=== PATIENT | male | born 1970 | race Hispanic/Latino ===

== ENCOUNTER 2016-11-06 23:33 | Inpatient (IN) | payer MEDICARE ==
--- NOTE | 2016-11-06 23:42 | C.PDOC ---
Time Seen by Provider: 11/06/16 23:41 Chief Complaint (Nursing): Chest Pain Past Medical History Reviewed: Historical Data, Nursing Documentation, Vital Signs Vital Signs: Last Vital Signs Temp 99 F 11/06/16 23:48 Pulse 98 H 11/06/16 23:48 Resp 20 11/06/16 23:48 BP 120/77 11/06/16 23:48 Pulse Ox 98 11/07/16 00:07 - Medical History PMH: Asthma Family History: States: No Known Family Hx - Social History Hx Tobacco Use: No Hx Alcohol Use: No Hx Substance Use: No - Immunization History Hx Tetanus Toxoid Vaccination: No Hx Influenza Vaccination: No Hx Pneumococcal Vaccination: No ED Course And Treatment - Laboratory Results Result Diagrams: 11/07/16 00:26 ECG: Interpreted By Me, Viewed By Me ECG Rhythm: Sinus Rhythm (94), Nonspecific Changes O2 Sat by Pulse Oximetry: 98 Pulse Ox Interpretation: Normal - Radiology CXR: Interpreted by Me, Viewed By Me CXR Interpretation: No: Infiltrates, Fracture, Pnemothorax Progress Note: blood work, asa, syphylis work up Disposition Counseled Patient/Family Regarding: Studies Performed, Diagnosis - Disposition Disposition Time: 23:42
[2016-11-07 00:31] LABS: BASO # 0.1 K/uL (0.0-0.2); BASO % 0.7 % (0.0-2.0); EOS # 0.5 K/uL (0.0-0.7); EOS % 4.8 % (0.0-4.0); HEMATOCRIT 38.6 % (35.0-51.0); LYMPH # 2.6 K/uL (1.0-4.3); LYMPH % 23.4 % (20.0-40.0); MEAN CELL VOLUME 83.6 fL (80.0-94.0); MEAN CORPUSCULAR HEMOGLOBIN 27.9 pg (27.0-31.0); MEAN CORPUSCULAR HGB CONC 33.3 g/dL (33.0-37.0); MEAN PLATELET VOLUME 7.2 fL (7.2-11.7); MONO # 0.7 K/uL (0.0-0.8); MONO % 6.4 % (0.0-10.0); RED CELL DISTRIBUTION WIDTH 13.3 % (11.5-14.5); WHITE BLOOD COUNT 11.3 K/uL (4.8-10.8)
[2016-11-07 00:38] LABS: INR 1.2
[2016-11-07 00:44] LABS: CHLORIDE 98 mmol/L (98-107); POTASSIUM 3.9 mmol/L (3.6-5.2); SODIUM 134 mmol/L (132-148)
[2016-11-07 00:46] LABS: ALB/GLOB RATIO 1.3 (1.0-2.1); ALKALINE PHOSPHATASE 70 U/L (38-126); ALT/SGPT 23 U/L (21-72); AST/SGOT 25 U/L (17-59); BILIRUBIN,TOTAL 0.7 mg/dL (0.2-1.3); BLOOD UREA NITROGEN 19 mg/dL (9-20); CARBON DIOXIDE 25 mmol/L (22-30); GFR AFRICAN-AMERICAN > 60; TOTAL PROTEIN 7.1 g/dL (6.3-8.3)
[2016-11-07 00:47] LABS: CALCIUM 9.3 mg/dl (8.6-10.4); GLUCOSE,RANDOM 98 mg/dL (75-110)
[2016-11-07 00:58] LABS: RBC URINE 1 /hpf (0-3); URINE BILIRUBIN NEGATIVE (NEGATIVE); URINE BLOOD NEGATIVE (NEGATIVE); URINE COLOR Yellow (YELLOW); URINE GLUCOSE (UA) NORMAL (Normal); URINE KETONE NEGATIVE (NEGATIVE); URINE LEUKOCYTE ESTERASE NEG Leu/uL (Negative); URINE PROTEIN NEGATIVE (NEGATIVE); URINE UROBILINOGEN NORMAL mg/dL (0.2-1.0); WBC URINE 1 /hpf (0-5)
--- NOTE | 2016-11-07 03:55 | C.PDOC ---
History Of Present Illness patient initially stated that he had chest pain, but he really wants to complain about his scotal pain. Has had unprotected intercourse and has developed foul smelling celulitis of his scrotum as well as a diffuse body rash. Has had some exposure to syphilis in the past. Denies any chest pain. No f /c/n/v Time Seen by Provider: 11/06/16 23:41 Chief Complaint (Nursing): Chest Pain History Per: Patient, Family History/Exam Limitations: no limitations Onset/Duration Of Symptoms: Days Current Symptoms Are (Timing): Still Present Severity: Moderate Pain Scale Rating Of: 4 Recent travel outside of the [place]: No Additional History Per: Family Past Medical History Reviewed: Historical Data, Nursing Documentation, Vital Signs Vital Signs: Last Vital Signs Temp 99 F 11/06/16 23:48 Pulse 87 11/07/16 04:15 Resp 20 11/07/16 04:15 BP 131/70 11/07/16 04:15 Pulse Ox 98 11/07/16 04:15 - Medical History PMH: Anxiety, Asthma, Bipolar Disorder Family History: States: No Known Family Hx - Social History Hx Tobacco Use: No Hx Alcohol Use: No Hx Substance Use: No - Immunization History Hx Tetanus Toxoid Vaccination: No Hx Influenza Vaccination: No Hx Pneumococcal Vaccination: No Review Of Systems Constitutional: Negative for: Fever, Chills Eyes: Negative for: Vision Change Cardiovascular: Negative for: Chest Pain, Palpitations Respiratory: Negative for: Shortness of Breath Gastrointestinal: Negative for: Nausea, Vomiting, Abdominal Pain Genitourinary: Positive for: Scrotal Pain, Rash. Negative for: Dysuria, Incontinence Musculoskeletal: Negative for: Back Pain Skin: Positive for: Rash, Lesions. Negative for: Jaundice, Bruising Neurological: Negative for: Weakness Psych: Negative for: Anxiety Physical Exam - Physical Exam Appears: Non-toxic, No Acute Distress Skin: Warm, Rash (diffuse chest, back, possible palms) Head: Normacephalic Eye(s): bilateral: Normal Inspection Oral Mucosa: Moist Tongue: Normal Appearing Lips: Normal Appearing Neck: Supple Chest: Symmetrical Cardiovascular: Rhythm Regular Respiratory: No Rales, No Rhonchi, No Wheezing Gastrointestinal/Abdominal: Soft, No Tenderness, No Distention Male Genital: Testicular Tenderness, No Testicular Swelling, No Inguinal Tenderness, No Inguinal Swelling, Scrotal Swelling, Circumcised, Other (diffuse erythema, foul smelling discharge) Extremity: Normal ROM Extremity: Bilateral: Atraumatic Neurological/Psych: Oriented x3, Normal Speech, Normal Cognition Gait: Steady ED Course And Treatment - Laboratory Results Result Diagrams: 11/07/16 00:26 11/07/16 00:26 ECG: Interpreted By Me, Viewed By Me ECG Rhythm: Sinus Rhythm (94), Nonspecific Changes O2 Sat by Pulse Oximetry: 97 Pulse Ox Interpretation: Normal - Radiology CXR: Interpreted by Me, Viewed By Me CXR Interpretation: No: Infiltrates, Fracture, Pnemothorax Disposition Discussed With Dr.: Jose Bashir Comment: accepted the pt on his service and took over the care at 5:00AM Doctor Will See Patient In The: ED Counseled Patient/Family Regarding: Studies Performed, Diagnosis - Disposition Disposition: HOSPITALIZED Disposition Time: 02:00 Condition: FAIR - Clinical Impression Clinical Impression: Cellulitis, 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 This is because of the severity of symptoms shown, intensity of services needed, and/or the medical risk in this patient being treated as an outpatient. - InPatient: Physician Admission Certification: I certify that this patient requires 2 or more midnights of care for the following reason:: After my assessment, the patient will require hospitalization for at least two midnights. This is because of the severity of symptoms shown, intensity of services needed, and/or the medical risk in this patient being treated as an outpatient. - . 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
--- NOTE | 2016-11-07 04:33 | CP.PCM.HP ---
History of Present Illness - History of Present Illness History of Present Illness: CC: pain in my groin HPI: 46M PMHx of syphillis, Herpes2, recurrent SBO (2001, 2006, 2013, 2017), HTN , Schizoaffective disorder, anxiety, and Bipolar 1 presenting with pain and swelling in his groin for 1 week. Patent reports the pain is sharp and stabbing in nature, 10/10 in intensity, and constant. Patient reports the pain is exacerbated when there is active discharge from his testicles. His boyfriend sprayed benzocaine once which helped the pain and he also tried applying neosporin that made the area sting and a steroid cream which did not seem to help. Patient reported he is unable to walk or work secondary to the pain. He felt like his testicles had "shriveled up" and were smaller but there were two excoriated regions on his thighs that were like open wounds. Patient reports a lot of pain on the insides of his thighs and feeling like they were very swollen. The friction of walking coupled to the heat exacerbated the pain immensely. He also reported a foul odor. Patient's last flare of syphillis was in 2009 but he reported that this time it was worse. He also has been having intermittent pleuritic chest pain on the left upper side of his chest; worsened when bending over or sitting up and taking a deep breath. Patient initially complained of the chest pain when he came to the ER as he was embarrassed about the scrotal inflammation. Patient reported the pain in his chest was very sensitive to when he would move his arm up or down. He saw his PMD regarding the chest pain who recommended patient come to [facility] for a CXR. Patient also has a flat nonpruritic diffuse rash over his torso, arms, and back for the past 2 months but not on his palms or soles. He believes this rash is related to his syphillis. Patient stated his partner was diagonsed with syphillis in 1999 and was treated but the patient was not treated; in 2009 both him and his partner had a flare up of secondary syphillis and were treated for 6 weeks with Penicillin and patient had a 30pound weight loss. Patient admits to weakness, dizziness, lightheadedness, sore throat, palpitations, SOB, abdominal pain, nausea, 5 episodes of diarrhea, dysuria, sore feeling when he urinates, rash. Patient denies fever, chills, diaphoresis, headache, change in vision/hearing, dysphagia, chest pain, cough, vomiting, constipation, hematochezia, urinary frequency, leg pain/swelling, back pain, bruising, bleeding, recent travel, recent sickness. PMHx: syphillis, herpes2, recurrent SBO, HTN, schizoaffective disorder, anxiety , bipolar 1 PSHx: SBO 2001 ALL: NKDA Medications: Cozaar, Omeprazole, Risperdal, Clonazepam, Hydroxyzine, Lamictal Social Hx: quit tobacco at 19yo and does not drink. 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 Last use was day of admission. Lives with boyfriend and works at a [employer] Family Hx: cousin with lung ca PMD: Vick ROS: Denies fever, chills, diaphoresis, headache, change in vision/hearing, dysphagia, chest pain, cough, vomiting, constipation, hematochezia, urinary frequency, leg pain/swelling, back pain, bruising, bleeding, recent travel, recent sickness. Admits weakness, dizziness, lightheadedness, sore throat, palpitations, SOB, abdominal pain, nausea, 5 episodes of diarrhea, dysuria, sore feeling when he urinates, rash. Present on Admission - Present on Admission Any Indicators Present on Admission: No Review of Systems - Constitutional Constitutional: As Per HPI. absent: Chills, Fever - EENT Eyes: As Per HPI. absent: Blurred Vision Ears: As Per HPI, Dizziness Nose/Mouth/Throat: As Per HPI, Sore Throat. absent: Dysphagia - Cardiovascular Cardiovascular: As Per HPI, Palpitations. absent: Chest Pain, Dyspnea, Edema - Respiratory Respiratory: As Per HPI. absent: Cough, Wheezing - Gastrointestinal Gastrointestinal: As Per HPI, Abdominal Pain, Diarrhea, Nausea. absent: Constipation, Vomiting - Genitourinary Genitourinary: As Per HPI. absent: Dysuria, Hematuria - Reproductive: Male Reproductive:Male: As Per HPI, Genital Odor, Other (redness and inflammation of scrotum and penis) - Musculoskeletal Musculoskeletal: As Per HPI. absent: Numbness, Tingling - Integumentary Integumentary: As Per HPI, Erythema (groin), Rash (groin). absent: Pruritus - Neurological Neurological: As Per HPI, Dizziness. absent: Headaches, Tingling - Psychiatric Psychiatric: As Per HPI, Anxiety. absent: Depression - Endocrine Endocrine: As Per HPI, Palpitations. absent: Polydipsia, Polyphagia, Polyuria - Hematologic/Lymphatic Hematologic: As Per HPI. absent: Easy Bleeding, Easy Bruising, Lymphadenopathy Past Patient History - Past Social History Smoking Status: Never Smoked - PULMONARY Hx Asthma: Yes - PSYCHIATRIC Hx Anxiety: Yes Hx Bipolar Disorder: Yes Hx Substance Use: No - SURGICAL HISTORY Other/Comment: SMALL BOWEL OBSTRUCTION SURGERY - ANESTHESIA Hx Anesthesia: Yes Hx Anesthesia Reactions: No Meds Allergies/Adverse Reactions: Allergies Allergy/AdvReac Type Severity Reaction Status Date / Time No Known Allergies Allergy Verified 11/06/16 23:52 Physical Exam - Constitutional Additional comments: discomfort - Head Exam Head Exam: ATRAUMATIC, NORMAL INSPECTION, NORMOCEPHALIC - Eye Exam Eye Exam: EOMI, Normal appearance, PERRL. absent: Conjunctival injection, Scleral icterus Pupil Exam: NORMAL ACCOMODATION - ENT Exam ENT Exam: Mucous Membranes Moist - Neck Exam Neck exam: Positive for: Full Rom, Normal Inspection. Negative for: Lymphadenopathy, Tenderness - Respiratory Exam Respiratory Exam: Clear to Auscultation Bilateral, NORMAL BREATHING PATTERN. absent: Accessory Muscle Use, Rales, Rhonchi, Wheezes Additional comments: macular rash noted diffusely on chest wall - Cardiovascular Exam Cardiovascular Exam: REGULAR RHYTHM, RRR, +S1, +S2. absent: Systolic Murmur - GI/Abdominal Exam GI & Abdominal Exam: Normal Bowel Sounds, Soft. absent: Firm, Guarding, Rigid, Tenderness - Exam External exam: Erythema, Swelling. absent: NORMAL EXTERNAL EXAM - Expanded Exam Expanded Male exam: Positive for: erythema exam: testicular swelling: Bilateral, testicular tenderness: Bilateral - Extremities Exam Extremities exam: Positive for: normal capillary refill, normal inspection, pedal pulses present. Negative for: pedal edema, tenderness - Back Exam Back exam: rash noted. absent: CVA tenderness (L), CVA tenderness (R), tenderness Additional comments: rash noted diffusely - Neurological Exam Neurological exam: Alert, CN II-XII Intact, Oriented x3 - Psychiatric Exam Psychiatric exam: Normal Affect, Normal Mood - Skin Skin Exam: Dry, Intact, Normal Color, Warm Results - Vital Signs Recent Vital Signs: Last Vital Signs Temp 99 F 11/06/16 23:48 Pulse 98 H 11/06/16 23:48 Resp 20 11/06/16 23:48 BP 120/77 11/06/16 23:48 Pulse Ox 97 11/07/16 03:57 - Labs Result Diagrams: 11/07/16 00:26 11/07/16 00:26 Labs: Laboratory Results - last 24 hr 11/07/16 11/07/16 11/07/16 00:26 00:26 00:26 WBC 11.3 H RBC 4.62 Hgb 12.9 Hct 38.6 MCV 83.6 MCH 27.9 MCHC 33.3 RDW 13.3 Plt Count 330 MPV 7.2 Neut % (Auto) 64.7 Lymph % (Auto) 23.4 [place] % (Auto) 6.4 Eos % (Auto) 4.8 H Baso % (Auto) 0.7 Neut # 7.3 H Lymph # 2.6 [place] # 0.7 Eos # 0.5 Baso # 0.1 PT 13.1 H INR 1.2 APTT 30 Sodium 134 Potassium 3.9 Chloride 98 Carbon Dioxide 25 Anion Gap 15 BUN 19 Creatinine 1.0 Est GFR ( Amer) > 60 Est GFR (Non-Af Amer) > 60 Random Glucose 98 Calcium 9.3 Magnesium 2.0 Total Bilirubin 0.7 AST 25 ALT 23 Alkaline Phosphatase 70 Troponin I < 0.0120 Total Protein 7.1 Albumin 4.0 Globulin 3.1 Albumin/Globulin Ratio 1.3 Lipase 32 Urine Color Urine Clarity Urine pH Ur Specific [place] Urine Protein Urine Glucose (UA) Urine Ketones Urine Blood Urine Nitrate Urine Bilirubin Urine Urobilinogen Ur Leukocyte Esterase Urine WBC (Auto) Urine RBC (Auto) HIV 1&2 Antibody Screen 11/07/16 11/07/16 00:26 00:42 WBC RBC Hgb Hct MCV MCH MCHC RDW Plt Count MPV Neut % (Auto) Lymph % (Auto) [place] % (Auto) Eos % (Auto) Baso % (Auto) Neut # Lymph # [place] # Eos # Baso # PT INR APTT Sodium Potassium Chloride Carbon Dioxide Anion Gap BUN Creatinine Est GFR ( Amer) Est GFR (Non-Af Amer) Random Glucose Calcium Magnesium Total Bilirubin AST ALT Alkaline Phosphatase Troponin I Total Protein Albumin Globulin Albumin/Globulin Ratio Lipase Urine Color Yellow Urine Clarity Clear Urine pH 5.0 Ur Specific [place] 1.027 Urine Protein Negative Urine Glucose (UA) Normal Urine Ketones Negative Urine Blood Negative Urine Nitrate Negative Urine Bilirubin Negative Urine Urobilinogen Normal Ur Leukocyte Esterase Neg Urine WBC (Auto) 1 Urine RBC (Auto) 1 HIV 1&2 Antibody Screen Negative Assessment & Plan - Assessment and Plan (Free Text) Assessment: 46M PMHx of syphillis, Herpes2, recurrent SBO (2001, 2006, 2013, 2016), HTN, Schizoaffective disorder, anxiety, and Bipolar 1 presenting with pain and swelling in his groin for 1 week Plan: Groin rash -likely fungal -Diflucan 150mg po daily -HIV negative -f/u RPR, GC -f/u blood culture and urine culture Bipolar and Schizoaffective disorder -restarted home meds Risperdal 2mg po bid Klonipin 1mg po bid Lamictal 200mg po daily -f/u TSH and free T4 Hx of HTN? -Patient' takes boyfriend's medications -Monitor PPX -Heparin 5000U sc q12 -Protonix 40mg po daily -SCDs -Heart Healthy diet Case discussed with Dr. Krysten Salvador PGY1
--- NOTE | 2016-11-07 07:48 | CP.PCM.PN ---
<Emperatriz Ferrell - Last Filed: 11/07/16 13:40> Subjective - Date & Time of Evaluation Date of Evaluation: 11/07/16 Time of Evaluation: 07:48 - Subjective Subjective: Patient seen and examined at bedside. Patient appears anxious as he is concerned he has developed tertiary syphilis. He notes history of syphilis in the past but denies associated rash previously. Patient states pain to his testicles has improved as he is not moving around in hospital much, eliminating element of friction. He is concerned about the rash present to his chest and back and believes it is association with syphilis. Patient denies fever, chills , headache, dizziness, chest pain, abdominal pain, diarrhea, constipation , dysuria and increased urinary frequency. Objective - Vital Signs/Intake and Output Vital Signs (last 24 hours): Temp Pulse Resp BP Pulse Ox 97.8 F 73 20 111/75 98 11/07/16 06:31 11/07/16 06:31 11/07/16 06:31 11/07/16 06:31 11/07/16 06:31 - Medications Medications: Current Medications Clonazepam (Klonopin) 1 mg PO BID [facility] Fluconazole (Diflucan) 150 mg PO DAILY [facility] Heparin Sodium (Porcine) (Heparin) 5,000 units SC Q12 [facility] Home Med (Lamictal) 200 mg PO DAILY [facility] Pantoprazole Sodium (Protonix Ec Tab) 40 mg PO DAILY [facility] Risperidone (Risperdal Tab) 2 mg PO BID [facility] - Labs Labs: PT 13.1 SECONDS (9.7-12.2) H 11/07/16 00:26 INR 1.2 11/07/16 00:26 APTT 30 SECONDS (21-34) 11/07/16 00:26 - Constitutional Appears: Non-toxic, No Acute Distress - Head Exam Head Exam: ATRAUMATIC, NORMAL INSPECTION, NORMOCEPHALIC - Eye Exam Eye Exam: EOMI, Normal appearance, PERRL - ENT Exam ENT Exam: Mucous Membranes Moist - Neck Exam Neck Exam: Full ROM, Normal Inspection - Respiratory Exam Respiratory Exam: Clear to Ausculation Bilateral, NORMAL BREATHING PATTERN. absent: Rales, Rhonchi, Wheezes - Cardiovascular Exam Cardiovascular Exam: +S1, +S2. absent: Tachycardia, Murmur - GI/Abdominal Exam GI & Abdominal Exam: Soft, Normal Bowel Sounds. absent: Firm, Guarding, Tenderness - Extremities Exam Extremities Exam: Normal Inspection. absent: Pedal Edema, Tenderness - Back Exam Back Exam: rash noted - Neurological Exam Neurological Exam: Alert, Awake, Oriented x3 - Psychiatric Exam Psychiatric exam: Anxious - Skin Additional comments: hyperpigmented round macules to upper back and chest edema and erythema noted to scrotum with slight erosions and linear fissuring to medial thighs where the skin opposes testicle Assessment and Plan - Assessment and Plan (Free Text) Assessment: Groin rash likely intertrigo -Avoid combination fungal/steroid creams as the steroid strength is too strong for the groin and will thin the skin. -Diflucan 150mg po administered at 10 AM. -Monitor LFTs -Start Ketoconazole 2% cream to groin/medial thighs in AM for 2 weeks and Fluocinolone Acetonide 0.01% cream to groin/medial thighs at night for two weeks. -Start Desitin barrier cream. Instructed patient to apply thick layer to affected area as needed. -Educated patient on trying to eliminate friction, moisture and heat to area and allow area to be exposed to air when possible. Patient also instructed to avoid wearing tight fitted clothing. Due to history of syphilis, f/u RPR, FTA-ABS, and GC. -HIV negative Macular Rash to Chest/Back likely tinea versicolor -Diflucan 150 mg po administered at 10 AM. Diflucan 150 mg po given once. Will give one more dose of Diflucan 300 mg po once on 11/14. -Monitor LFTs -Start Ketoconazole 2% cream to back/chest twice daily for 4 weeks -Syphilis work-up pending Bipolar and Schizoaffective disorder -restarted home meds Risperdal 2mg po bid Klonipin 1mg po bid Lamictal 100mg po daily -f/u Psychiatry recommendations Hx of HTN? -Patient' takes boyfriend's medications -Blood pressure has been low normotensive throughout hospital admission thus far -Will continue to monitor PPX -Heparin 5000U sc q12 -Protonix 40mg po daily -SCDs -Heart Healthy diet <Constantin Melgoza H - Last Filed: 11/07/16 15:40> Objective - Vital Signs/Intake and Output Vital Signs (last 24 hours): Temp Pulse Resp BP Pulse Ox 98 F 65 16 108/73 97 11/07/16 10:52 11/07/16 10:52 11/07/16 10:52 11/07/16 10:52 11/07/16 10:52 - Medications Medications: Current Medications Clonazepam (Klonopin) 1 mg PO BID [facility] Last Admin: 11/07/16 10:51 Dose: 1 mg Fluconazole (Diflucan) 150 mg PO DAILY [facility] Last Admin: 11/07/16 10:46 Dose: 150 mg Fluconazole (Diflucan) 300 mg PO ONCE ONE Stop: 11/14/16 10:01 Fluocinolone Acetonide (Synalar 0.01% Cream) 0 gm TOP HS [facility] Heparin Sodium (Porcine) (Heparin) 5,000 units SC Q12 [facility] Last Admin: 11/07/16 12:24 Dose: 5,000 units Ketoconazole (Nizoral) 0 gm TOP BID [facility] Lamotrigine (Lamictal) 100 mg PO DAILY [facility] Pantoprazole Sodium (Protonix Ec Tab) 40 mg PO DAILY [facility] Last Admin: 11/07/16 10:47 Dose: 40 mg Petrolatum (Desitin Original) 0 gm TOP QID [facility] Risperidone (Risperdal Tab) 2 mg PO BID [facility] Last Admin: 11/07/16 12:28 Dose: 2 mg - Labs Labs: PT 13.1 SECONDS (9.7-12.2) H 11/07/16 00:26 INR 1.2 11/07/16 00:26 APTT 32 SECONDS (21-34) 11/07/16 11:01 Attending/Attestation - Attestation I have personally seen and examined this patient.: Yes I have fully participated in the care of the patient.: Yes I have reviewed all pertinent clinical information, including history, physical exam and plan: Yes Notes (Text): Medical attending: Patient was seen and examined by me, agrees the above note by medical social consultant. The patient was not in any acute distress or acute concerns when we saw him. At this time were waiting on some the testing for syphilis to come back. He explains to us that he had a history of syphilis and received 6 shots of IM penicillin. He explains that this is been many years ago. It may be that he has a fungal component to the rashes in his in in her bilateral thighs as well as over his scrotum. He's been prescribed a topical ketoconazole cream to see if this brings him any relief. Thank you very much, Constantin Melgoza
--- NOTE | 2016-11-07 08:19 | RAD ---
PROCEDURE: CHEST RADIOGRAPH, 1 VIEW HISTORY: SOB COMPARISON: None available. FINDINGS: LUNGS: Clear. PLEURA: No pneumothorax or pleural fluid seen. CARDIOVASCULAR: Normal. OSSEOUS STRUCTURES: No significant abnormalities. VISUALIZED UPPER ABDOMEN: Normal. OTHER FINDINGS: None. IMPRESSION: No active disease.
[2016-11-07] MEDS: Pantoprazole 40 mg EC Tab PO SCH (10:47)
[2016-11-07] MEDS: Zinc Oxide Topical 30 gm Tube TOP SCH ×2 (18:11→21:12)
[2016-11-07] MEDS: Fluocinolone Acetonide 0.01% (15 gm) Cream TOP SCH (21:12)
[2016-11-08 06:50] LABS: CHLORIDE 104 mmol/L (98-107); SODIUM 138 mmol/L (132-148)
[2016-11-08 06:51] LABS: POTASSIUM 4.3 mmol/L (3.6-5.2)
[2016-11-08 06:53] LABS: ALB/GLOB RATIO 1.1 (1.0-2.1); ALKALINE PHOSPHATASE 65 U/L (38-126); ALT/SGPT 19 U/L (21-72); AST/SGOT 17 U/L (17-59); BILIRUBIN,TOTAL 0.6 mg/dL (0.2-1.3); BLOOD UREA NITROGEN 23 mg/dL (9-20); CALCIUM 9.5 mg/dl (8.6-10.4); CARBON DIOXIDE 26 mmol/L (22-30); GFR AFRICAN-AMERICAN > 60; GLUCOSE,RANDOM 90 mg/dL (75-110)
[2016-11-08 06:54] LABS: MAGNESIUM 2.3 mg/dL (1.6-2.3)
--- NOTE | 2016-11-08 07:13 | CP.PCM.PN ---
<Emperatriz Ferrell - Last Filed: 11/08/16 11:24> Subjective - Date & Time of Evaluation Date of Evaluation: 11/08/16 Time of Evaluation: 07:12 - Subjective Subjective: Patient seen and examined at bedside. He continues to report pain to his testicles. He has started using the prescribed topical medications yesterday and given detailed instructions at bedside regarding how to use the topicals. Patient informed RPR is non-reactive. We are awaiting FTA-ABS. Patient denies fever and chills. He also denies dysuria or increased urinary frequency. All other ROS negative. Objective - Vital Signs/Intake and Output Vital Signs (last 24 hours): Temp Pulse Resp BP Pulse Ox 97.9 F 75 20 107/73 98 11/07/16 23:05 11/07/16 23:05 11/07/16 23:05 11/07/16 23:05 11/07/16 23:05 - Medications Medications: Current Medications Clonazepam (Klonopin) 1 mg PO BID [facility] Last Admin: 11/07/16 21:08 Dose: 1 mg Fluconazole (Diflucan) 150 mg PO DAILY [facility] Last Admin: 11/07/16 10:46 Dose: 150 mg Fluconazole (Diflucan) 300 mg PO ONCE ONE Stop: 11/14/16 10:01 Fluocinolone Acetonide (Synalar 0.01% Cream) 0 gm TOP HS [facility] Last Admin: 11/07/16 21:12 Dose: 1 applic Heparin Sodium (Porcine) (Heparin) 5,000 units SC Q12 [facility] Last Admin: 11/07/16 22:23 Dose: 5,000 units Ketoconazole (Nizoral) 0 gm TOP BID [facility] Last Admin: 11/07/16 21:10 Dose: 1 applic Lamotrigine (Lamictal) 100 mg PO DAILY [facility] Pantoprazole Sodium (Protonix Ec Tab) 40 mg PO DAILY [facility] Last Admin: 11/07/16 10:47 Dose: 40 mg Petrolatum (Desitin Original) 0 gm TOP QID [facility] Last Admin: 11/07/16 21:12 Dose: 1 applic Risperidone (Risperdal Tab) 2 mg PO BID [facility] Last Admin: 11/07/16 21:08 Dose: 2 mg - Labs Labs: 11/08/16 06:28 PT 13.1 SECONDS (9.7-12.2) H 11/07/16 00:26 INR 1.2 11/07/16 00:26 APTT 32 SECONDS (21-34) 11/07/16 11:01 - Constitutional Appears: Non-toxic, No Acute Distress - Head Exam Head Exam: ATRAUMATIC, NORMAL INSPECTION, NORMOCEPHALIC - Eye Exam Eye Exam: EOMI, Normal appearance - ENT Exam ENT Exam: Mucous Membranes Moist - Respiratory Exam Respiratory Exam: Clear to Ausculation Bilateral, NORMAL BREATHING PATTERN. absent: Rales, Rhonchi, Wheezes - Cardiovascular Exam Cardiovascular Exam: +S1, +S2 - GI/Abdominal Exam GI & Abdominal Exam: Soft, Normal Bowel Sounds. absent: Firm, Guarding - Extremities Exam Extremities Exam: Normal Inspection. absent: Pedal Edema, Tenderness - Back Exam Back Exam: rash noted - Neurological Exam Neurological Exam: Alert, Awake, Oriented x3 - Psychiatric Exam Psychiatric exam: Normal Affect, Normal Mood - Skin Additional comments: hyperpigmented round macules to upper back and chest edema and erythema noted to scrotum with slight erosions and linear fissuring to medial thighs where the skin opposes testicle Assessment and Plan - Assessment and Plan (Free Text) Assessment: Groin rash likely intertrigo -Avoid combination fungal/steroid creams as the steroid strength is too strong for the groin and will thin the skin. -Diflucan 150mg po administered at 10 AM. -Monitor LFTs -Start Ketoconazole 2% cream to groin/medial thighs in AM for 2 weeks and Fluocinolone Acetonide 0.01% cream to groin/medial thighs at night for two weeks. -Start Desitin barrier cream. Instructed patient to apply thick layer to affected area as needed. -Educated patient on trying to eliminate friction, moisture and heat to area and allow area to be exposed to air when possible. Patient also instructed to avoid wearing tight fitted clothing. Due to history of syphilis: RPR, FTA-ABS, and GC ordered. RPR negative. Awaiting FTA-ABS. -HIV negative Macular Rash to Chest/Back likely tinea versicolor -Diflucan 150 mg po administered at 10 AM. Diflucan 150 mg po given once. Will give one more dose of Diflucan 300 mg po once on 11/14. -Monitor LFTs -Start Ketoconazole 2% cream to back/chest twice daily for 4 weeks -Syphilis work-up pending Bipolar and Schizoaffective disorder -restarted home meds Risperdal 2mg po bid Klonipin 1mg po bid Lamictal 100mg po daily -f/u Psychiatry recommendations Hx of HTN? -Patient' takes boyfriend's medications -Blood pressure has been low normotensive throughout hospital admission thus far -Will continue to monitor PPX -Heparin 5000U sc q12 -Protonix 40mg po daily -SCDs -Heart Healthy diet <Constantin Melgoza H - Last Filed: 11/08/16 16:09> Objective - Vital Signs/Intake and Output Vital Signs (last 24 hours): Temp Pulse Resp BP Pulse Ox 98.0 F 77 18 112/75 100 11/08/16 07:25 11/08/16 07:25 11/08/16 07:25 11/08/16 07:25 11/08/16 07:25 - Medications Medications: Current Medications Clonazepam (Klonopin) 1 mg PO BID [facility] Last Admin: 11/08/16 10:12 Dose: 1 mg Fluconazole (Diflucan) 150 mg PO DAILY [facility] Last Admin: 11/08/16 10:15 Dose: 150 mg Fluconazole (Diflucan) 300 mg PO ONCE ONE Stop: 11/14/16 10:01 Fluocinolone Acetonide (Synalar 0.01% Cream) 0 gm TOP HS [facility] Last Admin: 11/07/16 21:12 Dose: 1 applic Heparin Sodium (Porcine) (Heparin) 5,000 units SC Q12 [facility] Last Admin: 11/08/16 10:06 Dose: 5,000 units Ketoconazole (Nizoral) 0 gm TOP BID [facility] Last Admin: 11/08/16 10:08 Dose: 1 applic Lamotrigine (Lamictal) 100 mg PO DAILY [facility] Pantoprazole Sodium (Protonix Ec Tab) 40 mg PO DAILY [facility] Last Admin: 11/08/16 10:11 Dose: 40 mg Petrolatum (Desitin Original) 0 gm TOP QID [facility] Last Admin: 11/08/16 13:53 Dose: 1 applic Pneumococcal Polyvalent Vaccine (Pneumovax 23 Vaccine) 0.5 ml IM .ONCE ONE Stop: 11/09/16 10:01 Risperidone (Risperdal Tab) 2 mg PO BID [facility] Last Admin: 11/08/16 11:47 Dose: 2 mg - Labs Labs: 11/08/16 06:28 11/08/16 06:28 PT 13.1 SECONDS (9.7-12.2) H 11/07/16 00:26 INR 1.2 11/07/16 00:26 APTT 32 SECONDS (21-34) 11/07/16 11:01 Attending/Attestation - Attestation I have personally seen and examined this patient.: Yes I have fully participated in the care of the patient.: Yes I have reviewed all pertinent clinical information, including history, physical exam and plan: Yes Notes (Text): 11/08/16 16:08 Medical attending: Patient was seen and examined by me, agrees the above note by registered medical transcriptionist. The patient reports that he's feeling okay the initial RPR study returned that was negative for waiting on additional syphilis studies to return at this time. He had a dose of oral Diflucan as well as some topical ketoconazole that is being given to the affected areas especially around his groin and his inner thigh Thank you very much, Constantin Melgoza
[2016-11-08 07:22] LABS: BASO # 0.1 K/uL (0.0-0.2); BASO % 0.9 % (0.0-2.0); EOS # 0.5 K/uL (0.0-0.7); EOS % 6.7 % (0.0-4.0); HEMATOCRIT 39.7 % (35.0-51.0); LYMPH # 2.4 K/uL (1.0-4.3); LYMPH % 33.7 % (20.0-40.0); MEAN CELL VOLUME 83.8 fL (80.0-94.0); MEAN CORPUSCULAR HEMOGLOBIN 28.5 pg (27.0-31.0); MEAN PLATELET VOLUME 7.4 fL (7.2-11.7); MONO # 0.5 K/uL (0.0-0.8); MONO % 7.4 % (0.0-10.0); RED CELL DISTRIBUTION WIDTH 13.2 % (11.5-14.5); WHITE BLOOD COUNT 7.3 K/uL (4.8-10.8)
[2016-11-08] MEDS: Zinc Oxide Topical 30 gm Tube TOP SCH ×4 (10:07→21:36)
[2016-11-08] MEDS: Pantoprazole 40 mg EC Tab PO SCH (10:11)
[2016-11-08] MEDS: Fluocinolone Acetonide 0.01% (15 gm) Cream TOP SCH (21:37)
[2016-11-09 07:59] LABS: BASO # 0.1 K/uL (0.0-0.2); BASO % 1.1 % (0.0-2.0); EOS # 0.5 K/uL (0.0-0.7); EOS % 6.3 % (0.0-4.0); HEMATOCRIT 39.8 % (35.0-51.0); LYMPH # 2.6 K/uL (1.0-4.3); LYMPH % 34.7 % (20.0-40.0); MEAN CORPUSCULAR HEMOGLOBIN 28.7 pg (27.0-31.0); MEAN CORPUSCULAR HGB CONC 34.6 g/dL (33.0-37.0); MEAN PLATELET VOLUME 7.5 fL (7.2-11.7); MONO # 0.6 K/uL (0.0-0.8); MONO % 7.8 % (0.0-10.0); RED CELL DISTRIBUTION WIDTH 12.9 % (11.5-14.5); WHITE BLOOD COUNT 7.4 K/uL (4.8-10.8)
[2016-11-09 08:11] LABS: CHLORIDE 100 mmol/L (98-107)
[2016-11-09 08:12] LABS: POTASSIUM 4.3 mmol/L (3.6-5.2); SODIUM 136 mmol/L (132-148)
[2016-11-09 08:14] VITALS: RESP 18
[2016-11-09 08:14] LABS: AST/SGOT 21 U/L (17-59); BILIRUBIN,TOTAL 0.6 mg/dL (0.2-1.3); CARBON DIOXIDE 26 mmol/L (22-30); GFR AFRICAN-AMERICAN > 60
[2016-11-09 08:15] LABS: ALB/GLOB RATIO 1.2 (1.0-2.1); ALKALINE PHOSPHATASE 64 U/L (38-126); ALT/SGPT 17 U/L (21-72); BLOOD UREA NITROGEN 24 mg/dL (9-20); CALCIUM 9.4 mg/dl (8.6-10.4); GLUCOSE,RANDOM 91 mg/dL (75-110); TOTAL PROTEIN 6.9 g/dL (6.3-8.3)
[2016-11-09] MEDS: Pantoprazole 40 mg EC Tab PO SCH (09:59)
[2016-11-09] MEDS ORDERED: Pneumococcal 23-Valent Vaccine IM ONE (10:00)
[2016-11-09] MEDS: Zinc Oxide Topical 30 gm Tube TOP SCH ×2 (10:02→13:24)
--- NOTE | 2016-11-09 11:56 | CP.PCM.DIS ---
<PaulaArabella vasquez H - Last Filed: 11/09/16 11:52> Provider - Provider Date of Admission: 11/07/16 05:37 Attending physician: Jose Bashir MD Primary care physician: A doctor with [facility] Time Spent in preparation of Discharge (in minutes): 40 Hospital Course - Lab Results Lab Results: Most Recent Lab Values WBC 7.4 K/uL (4.8-10.8) 11/09/16 07:34 RBC 4.79 Mil/uL (4.40-5.90) 11/09/16 07:34 Hgb 13.8 g/dL (12.0-18.0) 11/09/16 07:34 Hct 39.8 % (35.0-51.0) 11/09/16 07:34 MCV 83.0 fL (80.0-94.0) 11/09/16 07:34 MCH 28.7 pg (27.0-31.0) 11/09/16 07:34 MCHC 34.6 g/dL (33.0-37.0) 11/09/16 07:34 RDW 12.9 % (11.5-14.5) 11/09/16 07:34 Plt Count 327 K/uL (130-400) 11/09/16 07:34 MPV 7.5 fL (7.2-11.7) 11/09/16 07:34 Neut % (Auto) 50.1 % (50.0-75.0) 11/09/16 07:34 Lymph % (Auto) 34.7 % (20.0-40.0) 11/09/16 07:34 Kings % (Auto) 7.8 % (0.0-10.0) 11/09/16 07:34 Eos % (Auto) 6.3 % (0.0-4.0) H 11/09/16 07:34 Baso % (Auto) 1.1 % (0.0-2.0) 11/09/16 07:34 Neut # 3.7 K/uL (1.8-7.0) 11/09/16 07:34 Lymph # 2.6 K/uL (1.0-4.3) 11/09/16 07:34 Kings # 0.6 K/uL (0.0-0.8) 11/09/16 07:34 Eos # 0.5 K/uL (0.0-0.7) 11/09/16 07:34 Baso # 0.1 K/uL (0.0-0.2) 11/09/16 07:34 PT 13.1 SECONDS (9.7-12.2) H 11/07/16 00:26 INR 1.2 11/07/16 00:26 APTT 32 SECONDS (21-34) 11/07/16 11:01 Sodium 136 mmol/L (132-148) 11/09/16 07:34 Potassium 4.3 mmol/L (3.6-5.2) 11/09/16 07:34 Chloride 100 mmol/L (98-107) 11/09/16 07:34 Carbon Dioxide 26 mmol/L (22-30) 11/09/16 07:34 Anion Gap 15 (10-20) 11/09/16 07:34 BUN 24 mg/dL (9-20) H 11/09/16 07:34 Creatinine 0.8 MG/DL (0.8-1.5) 11/09/16 07:34 Est GFR ( Amer) > 60 11/09/16 07:34 Est GFR (Non-Af Amer) > 60 11/09/16 07:34 POC Glucose (mg/dL) 86 mg/dL (65-110) 11/09/16 11:48 Random Glucose 91 mg/dL (75-110) 11/09/16 07:34 Calcium 9.4 mg/dl (8.6-10.4) 11/09/16 07:34 Phosphorus 4.0 mg/dL (2.5-4.5) 11/08/16 06:28 Magnesium 2.0 mg/dL (1.6-2.3) 11/09/16 07:34 Total Bilirubin 0.6 mg/dL (0.2-1.3) 11/09/16 07:34 AST 21 U/L (17-59) 11/09/16 07:34 ALT 17 U/L (21-72) L 11/09/16 07:34 Alkaline Phosphatase 64 U/L (38-126) 11/09/16 07:34 Troponin I < 0.0120 ng/mL (0.00-0.120) 11/07/16 00:26 Total Protein 6.9 g/dL (6.3-8.3) 11/09/16 07:34 Albumin 3.7 g/dL (3.5-5.0) 11/09/16 07:34 Globulin 3.1 gm/dL (2.2-3.9) 11/09/16 07:34 Albumin/Globulin Ratio 1.2 (1.0-2.1) 11/09/16 07:34 Lipase 32 U/L (23-300) 11/07/16 00:26 Free T4 1.36 ng/dL (0.78-2.19) 11/07/16 07:14 TSH 3rd Generation 3.12 mIU/L (0.46-4.68) 11/07/16 07:14 Urine Color Yellow (YELLOW) 11/07/16 00:42 Urine Clarity Clear (Clear) 11/07/16 00:42 Urine pH 5.0 (5.0-8.0) 11/07/16 00:42 Ur Specific [place] 1.027 (1.003-1.030) 11/07/16 00:42 Urine Protein Negative mg/dL (NEGATIVE) 11/07/16 00:42 Urine Glucose (UA) Normal mg/dL (Normal) 11/07/16 00:42 Urine Ketones Negative mg/dL (NEGATIVE) 11/07/16 00:42 Urine Blood Negative (NEGATIVE) 11/07/16 00:42 Urine Nitrate Negative (NEGATIVE) 11/07/16 00:42 Urine Bilirubin Negative (NEGATIVE) 11/07/16 00:42 Urine Urobilinogen Normal mg/dL (0.2-1.0) 11/07/16 00:42 Ur Leukocyte Esterase Neg Leonard/uL (Negative) 11/07/16 00:42 Urine WBC (Auto) 1 /hpf (0-5) 11/07/16 00:42 Urine RBC (Auto) 1 /hpf (0-3) 11/07/16 00:42 RPR Nonreactive (NONREACTIVE) 11/07/16 00:39 T.pallidum Ab (FTA-ABS) Reactive minimal (Nonreactive) H 11/07/16 08:26 C.trachomatis RNA (TMA) Not detected (Not Detected) 11/06/16 08:26 HIV 1&2 Antibody Screen Negative (NEGATIVE) 11/07/16 00:26 N.gonorrhoeae RNA (TMA) Not detected (Not Detected) 11/06/16 08:26 - Hospital Course Hospital Course: On admission: 46M PMHx of syphillis, Herpes2, recurrent SBO (2001, 2006, 2013, 2016), HTN, Schizoaffective disorder, anxiety, and Bipolar 1 presenting with pain and swelling in his groin for 1 week. Patent reports the pain is sharp and stabbing in nature, 10/10 in intensity, and constant. Patient reports the pain is exacerbated when there is active discharge from his testicles. His boyfriend sprayed benzocaine once which helped the pain and he also tried applying neosporin that made the area sting and a steroid cream which did not seem to help. Patient reported he is unable to walk or work secondary to the pain. He felt like his testicles had "shriveled up" and were smaller but there were two excoriated regions on his thighs that were like open wounds. Patient reports a lot of pain on the insides of his thighs and feeling like they were very swollen. The friction of walking coupled to the heat exacerbated the pain immensely. He also reported a foul odor. Patient's last flare of syphillis was in 2009 but he reported that this time it was worse. He also has been having intermittent pleuritic chest pain on the left upper side of his chest; worsened when bending over or sitting up and taking a deep breath. Patient initially complained of the chest pain when he came to the ER as he was embarrassed about the scrotal inflammation. Patient reported the pain in his chest was very sensitive to when he would move his arm up or down. He saw his PMD regarding the chest pain who recommended patient come to [facility] for a CXR. Patient also has a flat nonpruritic diffuse rash over his torso, arms, and back for the past 2 months but not on his palms or soles. He believes this rash is related to his syphillis. Patient stated his partner was diagonsed with syphillis in 1999 and was treated but the patient was not treated; in 2009 both him and his partner had a flare up of secondary syphillis and were treated for 6 weeks with Penicillin and patient had a 30pound weight loss. Patient admits to weakness, dizziness, lightheadedness, sore throat, palpitations, SOB, abdominal pain, nausea, 5 episodes of diarrhea, dysuria, sore feeling when he urinates, rash. Patient denies fever, chills, diaphoresis, headache, change in vision/hearing, dysphagia, chest pain, cough, vomiting, constipation, hematochezia, urinary frequency, leg pain/swelling, back pain, bruising, bleeding, recent travel, recent sickness. Hospital Course: Patient's groin rash likely from intertrigo. Lamictal was stopped. Patient given diflucan 150mg PO. Patient started on ketoconazole and fluocinolone creams. Patient also given [place] barrier cream to use as needed. Educated patient on trying to eliminate friction, moisture and heat to area and allow area to be exposed to air when possible. Patient also instructed to avoid wearing tight fitted clothing. Due to history of syphilis, RPR and GC were ordered which were both negative. FTA-ABS was minimal positive but this will always be positive as patient previously had syphilis and was treated. Patient's macular rash of chest and back likely from tinea versicolor. Patient started on ketoconazole 2% cream twice a day. Both rashes seem to have improved over the course of patient's hospital stay. Patient says he feels better. Patient being discharged home with follow up with his PMD. On discharge: Patient to be discharged home per Dr. Constantin Melgoza. Patient should make an appointment and follow up with his PMD within one week. Patient should resume his home medications and take newly prescribed medications as directed below. Patient should keep whole body dry and clean. Avoid sweat. Eliminate friction. No tight clothing. Allow area to be exposed to air as much as possible. Patient should return to ED immediately if symptoms return or worsen. Newly prescribed medications: Zinc oxide cream - apply to scrotum four times a day as needed for pain relief Ketoconazole cream 2% - apply to back and chest twice a day for 2 weeks; apply to scrotum and groin every morning for 2 weeks Fluocinolone acetonide 0.01% cream - apply to scrotum and groin every night for 2 weeks Diflucan 300mg by mouth once on 11/14 Discharge Exam - Head Exam Head Exam: ATRAUMATIC, NORMAL INSPECTION, NORMOCEPHALIC - Eye Exam Eye Exam: EOMI - ENT Exam ENT Exam: Mucous Membranes Moist - Respiratory Exam Respiratory Exam: Clear to PA & Lateral, NORMAL BREATHING PATTERN, UNREMARKABLE. absent: Rales, Rhonchi, Wheezes - Cardiovascular Exam Cardiovascular Exam: REGULAR RHYTHM, +S1, +S2. absent: Gallop, Rubs, Systolic Murmur - GI/Abdominal Exam GI & Abdominal Exam: Normal Bowel Sounds, Soft. absent: Distended, Tenderness - Exam Additional comments: scrotum and groin have white cream on them, no tenderness - Extremities Exam Extremities exam: normal capillary refill - Neurological Exam Neurological exam: Alert, Oriented x3 - Psychiatric Exam Psychiatric exam: Normal Affect, Normal Mood - Skin Additional comments: back and chest - improving macular hypopigmentation and rash Discharge Plan - Discharge Medications Prescriptions: Fluconazole [Diflucan] 300 mg PO ONCE #1 tab Fluocinolone Acetonide [Synalar 0.01% Cream] 1 gm TOP HS #3 Ketoconazole 2% Cr [Nizoral] 1 gm TOP BID #4 Zinc Oxide [Desitin Original] 1 gm TOP QID #1 - Follow Up Plan Condition: FAIR Disposition: HOME/ ROUTINE Additional Instructions: Patient to be discharged home per Dr. Constantin Melgoza. Patient should make an appointment and follow up with his PMD within one week. Patient should resume his home medications and take newly prescribed medications as directed below. Patient should keep whole body dry and clean. Avoid sweat. Eliminate friction. No tight clothing. Allow area to be exposed to air as much as possible. Patient should return to ED immediately if symptoms return or worsen. Newly prescribed medications: Zinc oxide cream - apply to scrotum four times a day as needed for pain relief Ketoconazole cream 2% - apply to back and chest twice a day for 2 weeks; apply to scrotum and groin every morning for 2 weeks Fluocinolone acetonide 0.01% cream - apply to scrotum and groin every night for 2 weeks Diflucan 300mg by mouth once on 11/14 <Constantin Melgoza - Last Filed: 11/09/16 12:09> Provider - Provider Date of Admission: 11/07/16 05:37 Attending physician: Jose Bashir MD Hospital Course - Lab Results Lab Results: Most Recent Lab Values WBC 7.4 K/uL (4.8-10.8) 11/09/16 07:34 RBC 4.79 Mil/uL (4.40-5.90) 11/09/16 07:34 Hgb 13.8 g/dL (12.0-18.0) 11/09/16 07:34 Hct 39.8 % (35.0-51.0) 11/09/16 07:34 MCV 83.0 fL (80.0-94.0) 11/09/16 07:34 MCH 28.7 pg (27.0-31.0) 11/09/16 07:34 MCHC 34.6 g/dL (33.0-37.0) 11/09/16 07:34 RDW 12.9 % (11.5-14.5) 11/09/16 07:34 Plt Count 327 K/uL (130-400) 11/09/16 07:34 MPV 7.5 fL (7.2-11.7) 11/09/16 07:34 Neut % (Auto) 50.1 % (50.0-75.0) 11/09/16 07:34 Lymph % (Auto) 34.7 % (20.0-40.0) 11/09/16 07:34 Kings % (Auto) 7.8 % (0.0-10.0) 11/09/16 07:34 Eos % (Auto) 6.3 % (0.0-4.0) H 11/09/16 07:34 Baso % (Auto) 1.1 % (0.0-2.0) 11/09/16 07:34 Neut # 3.7 K/uL (1.8-7.0) 11/09/16 07:34 Lymph # 2.6 K/uL (1.0-4.3) 11/09/16 07:34 Kings # 0.6 K/uL (0.0-0.8) 11/09/16 07:34 Eos # 0.5 K/uL (0.0-0.7) 11/09/16 07:34 Baso # 0.1 K/uL (0.0-0.2) 11/09/16 07:34 PT 13.1 SECONDS (9.7-12.2) H 11/07/16 00:26 INR 1.2 11/07/16 00:26 APTT 32 SECONDS (21-34) 11/07/16 11:01 Sodium 136 mmol/L (132-148) 11/09/16 07:34 Potassium 4.3 mmol/L (3.6-5.2) 11/09/16 07:34 Chloride 100 mmol/L (98-107) 11/09/16 07:34 Carbon Dioxide 26 mmol/L (22-30) 11/09/16 07:34 Anion Gap 15 (10-20) 11/09/16 07:34 BUN 24 mg/dL (9-20) H 11/09/16 07:34 Creatinine 0.8 MG/DL (0.8-1.5) 11/09/16 07:34 Est GFR ( Amer) > 60 11/09/16 07:34 Est GFR (Non-Af Amer) > 60 11/09/16 07:34 POC Glucose (mg/dL) 86 mg/dL (65-110) 11/09/16 11:48 Random Glucose 91 mg/dL (75-110) 11/09/16 07:34 Calcium 9.4 mg/dl (8.6-10.4) 11/09/16 07:34 Phosphorus 4.0 mg/dL (2.5-4.5) 11/08/16 06:28 Magnesium 2.0 mg/dL (1.6-2.3) 11/09/16 07:34 Total Bilirubin 0.6 mg/dL (0.2-1.3) 11/09/16 07:34 AST 21 U/L (17-59) 11/09/16 07:34 ALT 17 U/L (21-72) L 11/09/16 07:34 Alkaline Phosphatase 64 U/L (38-126) 11/09/16 07:34 Troponin I < 0.0120 ng/mL (0.00-0.120) 11/07/16 00:26 Total Protein 6.9 g/dL (6.3-8.3) 11/09/16 07:34 Albumin 3.7 g/dL (3.5-5.0) 11/09/16 07:34 Globulin 3.1 gm/dL (2.2-3.9) 11/09/16 07:34 Albumin/Globulin Ratio 1.2 (1.0-2.1) 11/09/16 07:34 Lipase 32 U/L (23-300) 11/07/16 00:26 Free T4 1.36 ng/dL (0.78-2.19) 11/07/16 07:14 TSH 3rd Generation 3.12 mIU/L (0.46-4.68) 11/07/16 07:14 Urine Color Yellow (YELLOW) 11/07/16 00:42 Urine Clarity Clear (Clear) 11/07/16 00:42 Urine pH 5.0 (5.0-8.0) 11/07/16 00:42 Ur Specific [place] 1.027 (1.003-1.030) 11/07/16 00:42 Urine Protein Negative mg/dL (NEGATIVE) 11/07/16 00:42 Urine Glucose (UA) Normal mg/dL (Normal) 11/07/16 00:42 Urine Ketones Negative mg/dL (NEGATIVE) 11/07/16 00:42 Urine Blood Negative (NEGATIVE) 11/07/16 00:42 Urine Nitrate Negative (NEGATIVE) 11/07/16 00:42 Urine Bilirubin Negative (NEGATIVE) 11/07/16 00:42 Urine Urobilinogen Normal mg/dL (0.2-1.0) 11/07/16 00:42 Ur Leukocyte Esterase Neg Leonard/uL (Negative) 11/07/16 00:42 Urine WBC (Auto) 1 /hpf (0-5) 11/07/16 00:42 Urine RBC (Auto) 1 /hpf (0-3) 11/07/16 00:42 RPR Nonreactive (NONREACTIVE) 11/07/16 00:39 T.pallidum Ab (FTA-ABS) Reactive minimal (Nonreactive) H 11/07/16 08:26 C.trachomatis RNA (TMA) Not detected (Not Detected) 11/06/16 08:26 HIV 1&2 Antibody Screen Negative (NEGATIVE) 11/07/16 00:26 N.gonorrhoeae RNA (TMA) Not detected (Not Detected) 11/06/16 08:26 Attending/Attestation - Attestation I have personally seen and examined this patient.: Yes I have fully participated in the care of the patient.: Yes I have reviewed all pertinent clinical information, including history, physical exam and plan: Yes Notes (Text): 11/09/16 12:07 Medical Attending: Patient was seen and examined by me, agree with the above note by the resident. We saw the patient together. He will need to continue with the topical cream. He will also need to take PO diflucan x1 as outlined above in the resident note. We explained to the patient the RPR is negative and that the FTA-ABS is very slightly positive which probably is reflective of his history of past syphyllis. So he understands he will need to follow up with his PMD thank you Constantin Melgoza
[2016-11-09 14:57] VITALS: BP 121/79; PULSE 86; TEMP 97.5; O2SAT 99
--- NOTE | 2016-11-11 20:52 | CARD ---
APPROVED REPORT EKG Measurement Heart [id number] DC [id number] <Conclusion> Normal sinus rhythm Normal ECG
== END 2016-11-09 14:44 | disposition home or self-care (01) | DRG 607 ==
LOC: C.ER 23:33 → C.9E 11-07 05:37 → C.6T 11-07 10:38
PROVIDERS: ADMIT Internal Medicine; ATTEND Internal Medicine
DX: B36.0 Pityriasis versicolor (principal); F25.0 Schizoaffective disorder, bipolar type; I10 Essential (primary) hypertension; A53.9 Syphilis, unspecified; J45.909 Unspecified asthma, uncomplicated; N49.2 Inflammatory disorders of scrotum; L30.4 Erythema intertrigo; Z87.891 Personal history of nicotine dependence; Z86.19 Personal history of other infectious and parasitic diseases

== ENCOUNTER 2017-01-28 19:54 | Inpatient (IN) | payer MEDICARE ==
[2017-01-28] MEDS ORDERED: Iohexol 240 (50 ml) PO STA (23:12)
[2017-01-28 23:25] LABS: BASO # 0.1 K/uL (0.0-0.2); BASO % 0.8 % (0.0-2.0); EOS # 0.4 K/uL (0.0-0.7); EOS % 3.9 % (0.0-4.0); HEMATOCRIT 38.3 % (35.0-51.0); LYMPH # 2.4 K/uL (1.0-4.3); LYMPH % 21.9 % (20.0-40.0); MEAN CELL VOLUME 84.2 fL (80.0-94.0); MEAN CORPUSCULAR HEMOGLOBIN 28.9 pg (27.0-31.0); MEAN CORPUSCULAR HGB CONC 34.3 g/dL (33.0-37.0); MEAN PLATELET VOLUME 6.8 fL (7.2-11.7); MONO # 0.8 K/uL (0.0-0.8); MONO % 7.3 % (0.0-10.0); RED CELL DISTRIBUTION WIDTH 13.8 % (11.5-14.5); WHITE BLOOD COUNT 10.9 K/uL (4.8-10.8)
[2017-01-28] MEDS ORDERED: Iohexol 240 (50 ml) ONE (23:30)
[2017-01-28 23:51] LABS: CHLORIDE 101 mmol/L (98-107)
[2017-01-28 23:52] LABS: POTASSIUM 4.3 mmol/L (3.6-5.2); SODIUM 135 mmol/L (132-148)
[2017-01-28 23:54] LABS: ALB/GLOB RATIO 1.4 (1.0-2.1); ALKALINE PHOSPHATASE 54 U/L (38-126); AST/SGOT 30 U/L (17-59); BILIRUBIN,TOTAL 0.6 mg/dL (0.2-1.3); BLOOD UREA NITROGEN 12 mg/dL (9-20); CARBON DIOXIDE 25 mmol/L (22-30); GFR AFRICAN-AMERICAN > 60; TOTAL PROTEIN 7.1 g/dL (6.3-8.3)
[2017-01-28 23:55] LABS: ALT/SGPT 39 U/L (21-72); CALCIUM 9.4 mg/dl (8.6-10.4); GLUCOSE,RANDOM 89 mg/dL (75-110)
[2017-01-29 00:24] LABS: RBC URINE 1 /hpf (0-3); URINE BILIRUBIN NEGATIVE (NEGATIVE); URINE BLOOD NEGATIVE (NEGATIVE); URINE COLOR Yellow (YELLOW); URINE GLUCOSE (UA) NORMAL (Normal); URINE KETONE NEGATIVE (NEGATIVE); URINE LEUKOCYTE ESTERASE NEG Leu/uL (Negative); URINE PROTEIN NEGATIVE (NEGATIVE); URINE UROBILINOGEN NORMAL mg/dL (0.2-1.0); WBC URINE < 1 /hpf (0-5)
--- NOTE | 2017-01-29 01:27 | C.PDOC ---
History Of Present Illness 46 y/o male c/o lower abdominal pain for a day. Patient has a hx of intussusception and colon surgery with multiple of the same. Denies fever, chills, nausea, vomiting, or any other complaints. Time Seen by Provider: 01/28/17 23:03 Chief Complaint (Nursing): Abdominal Pain History Per: Patient History/Exam Limitations: no limitations Onset/Duration Of Symptoms: Days (1 day) Current Symptoms Are (Timing): Still Present Severity: Mild Location Of Pain/Discomfort: RLQ, LLQ Radiation Of Pain To:: None Quality Of Discomfort: "Pain" Associated Symptoms: denies: Fever, Chills, Nausea Exacerbating Factors: None Alleviating Factors: None Recent travel outside of the [place]: No Additional History Per: Patient Past Medical History Reviewed: Historical Data, Nursing Documentation, Vital Signs Vital Signs: Last Vital Signs Temp 97.9 F 01/28/17 21:50 Pulse 73 01/29/17 01:21 Resp 18 01/29/17 01:21 BP 107/80 01/29/17 01:21 Pulse Ox 98 01/29/17 01:42 - Medical History PMH: Anxiety, Asthma, Bipolar Disorder (Schizo-affective disorder), Sexually Transmitted Disease (Syphillis) Denies: Chronic Kidney Disease Family History: States: Unknown Family Hx - Social History Hx Tobacco Use: No Hx Alcohol Use: No Hx Substance Use: No - Immunization History Hx Tetanus Toxoid Vaccination: No Hx Influenza Vaccination: No Hx Pneumococcal Vaccination: Yes Review Of Systems Except As Marked, All Systems Reviewed And Found Negative. Constitutional: Negative for: Fever, Chills Gastrointestinal: Positive for: Abdominal Pain. Negative for: Nausea, Vomiting Physical Exam - Physical Exam Appears: Non-toxic, No Acute Distress Skin: Warm, Dry Head: Atraumatic, Normacephalic Cardiovascular: Rhythm Regular Respiratory: Normal Breath Sounds, No Rales, No Rhonchi, No Wheezing Gastrointestinal/Abdominal: Soft, Tenderness (Lower quadrant), Other (Large lower abdominal mid-line surgical scar. Scar tissue noted.) Neurological/Psych: Oriented x3, Normal Speech, Normal Cognition ED Course And Treatment - Laboratory Results Result Diagrams: 01/28/17 23:22 01/28/17 23:22 O2 Sat by Pulse Oximetry: 98 (RA) Pulse Ox Interpretation: Normal Medical Decision Making Medical Decision Making: Plans: * Omnipaque * CT Abd/ Pel with IV 0130: abd pain, h/o intussecption labs done, pending CT Abd with PO/IV Signed over to overnight MD to follow-up CT and dispo appropriately. Disposition - Disposition Disposition Time: 01:00 Condition: GOOD Forms: [employer] ([place]rainian) - Clinical Impression Clinical Impression: Abdominal pain - Scribe Statement The provider has reviewed the documentation as recorded by the Scribe Duong kirkland All medical record entries made by the Scribe were at my direction and personally dictated by me. I have reviewed the chart and agree that the record accurately reflects my personal performance of the history, physical exam, medical decision making, and the department course for this patient. I have also personally directed, reviewed, and agree with the discharge instructions and disposition. Physician Patient Turnover Patient Signed Over To: Lizett Ott Handoff Comments: follow-up CT and dispo appropriately.
[2017-01-29] MEDS ORDERED: Iodixanol 320 mg/ml 150 ml Bottle IV ONE (01:30)
--- NOTE | 2017-01-29 02:41 | CT ---
EXAM: CT Abdomen and Pelvis With Intravenous Contrast CLINICAL HISTORY: 46 years old, male; Pain; Abdominal pain; Patient HX: H/o intussusception; Additional info: Lower abd x 1 week, h/o intusseception TECHNIQUE: Axial computed tomography images of the abdomen and pelvis with intravenous contrast. All CT scans at this facility use one or more dose reduction techniques, viz.: automated exposure control; ma/kV adjustment per patient size (including targeted exams where dose is matched to indication; i.e. head); or iterative reconstruction technique. Coronal and sagittal reformatted images were created and reviewed. CONTRAST: 100 mL of VISI administered intravenously. COMPARISON: No relevant prior studies available. FINDINGS: Lower thorax: The bilateral lung bases are clear. ABDOMEN: Liver: No acute findings. Gallbladder and bile ducts: The gallbladder is minimally distended, without calcified stones. No significant intra- or extrahepatic biliary ductal dilation. Pancreas: Enhances homogeneously. No ductal dilation. No discrete mass. Spleen: No acute findings. Adrenals: No acute findings. Kidneys and ureters: No acute findings. No hydronephrosis or renal calculi. No discrete solid mass. PELVIS: Bladder: No acute findings. Reproductive: No acute findings. Appendix: The appendix is not visualized. No secondary signs of acute appendicitis are identified. ABDOMEN and PELVIS: Stomach and bowel: The rectum is distended with aerated stool, with asymmetric mural thickening. Ileocolic intussusception is identified (series 3, image 116; series 601, image 39; and best depicted on series 602, images 69 through 77). Peritoneum: No significant fluid collection. No free air. Lymph nodes: No pathologically enlarged lymph nodes. Vasculature: Unremarkable. Bones: No acute fracture. IMPRESSION: Ileocolic intussusception. Findings suggesting constipation.
[2017-01-29] MEDS ORDERED: Lidocaine 2% Jelly (Uro-Jet) TOP ONE (04:20)
--- NOTE | 2017-01-29 04:28 | CP.PCM.CON ---
<Emory Vivas - Last Filed: 01/29/17 04:32> History of Present Illness - History of Present Illness History of Present Illness: Surgery: Dr. Robles CC: LLQ pain Reason for consult: Intussusception HPI: Patient is a 46 y/o male w/ sign pmhx of schizoaffective disorder, prior intussusception, chronic constipation, and syphilis presents complaining of LLQ pain that started on Friday. He states the pain has gotten worse over time. He reports having similar pain in the past in which he has been diagnosed multiple time w/ intussusception. He states he had 1 operation for it before and nothing was found during procedure. He reports having f/u with a GI doctor for EGD and colonoscopy most recently Mar 2014 which was found to have a small colonic ulcer but otherwise normal. Patient states he suffers from chronic constipation. Last BM was 12 days prior to presentation to ER. He states it hurts now to attempt bowel movement because of the fullness in his rectum. He denies n/v/f/c. PMH: as above including, STDS/chlamydia PSH: ex lap w/ appendectomy for intussusception, EGD and colonoscopies Social: lives with partner, denies ETOH, tobacco, or drug use Family: denies fx of colon/GI malignancies Review of Systems - Review of Systems All systems: reviewed and no additional remarkable complaints except Review of Systems: unless stated in HPI Past Patient History - Past Medical History & Family History Past Medical History?: No - Past Social History Smoking Status: Never Smoked - CARDIAC Hx Cardiac Disorders: No - PULMONARY Hx Asthma: Yes - NEUROLOGICAL Hx Neurological Disorder: No - HEENT Hx HEENT Problems: No - RENAL Hx Chronic Kidney Disease: No - ENDOCRINE/METABOLIC Hx Endocrine Disorders: No - HEMATOLOGICAL/ONCOLOGICAL Hx Blood Disorders: No - INTEGUMENTARY Hx Dermatological Problems: No - MUSCULOSKELETAL/RHEUMATOLOGICAL Hx Musculoskeletal Disorders: No Hx Falls: No - GASTROINTESTINAL Hx Gastrointestinal Disorders: Yes Hx Bowel Surgery: Yes (SBO 2001) - GENITOURINARY/GYNECOLOGICAL Hx Sexually Transmitted Disorders: Yes (Syphillis) - PSYCHIATRIC Hx Anxiety: Yes Hx Bipolar Disorder: Yes (Schizo-affective disorder) Hx Substance Use: No - SURGICAL HISTORY Hx Surgeries: Yes Other/Comment: SMALL BOWEL OBSTRUCTION SURGERY - ANESTHESIA Hx Anesthesia: Yes Hx Anesthesia Reactions: No Meds Allergies/Adverse Reactions: Allergies Allergy/AdvReac Type Severity Reaction Status Date / Time No Known Allergies Allergy Verified 01/28/17 21:54 - Medications Medications: Current Medications Lactated Ringer's (Lactated Ringer's) 1,000 mls @ 100 mls/hr IV .Q10H MIKHAIL Lidocaine HCl (Xylocaine 2% (Uro-Jet)) 0 ea TOP ONCE ONE Stop: 01/29/17 04:21 Physical Exam - Constitutional Appears: Non-toxic, No Acute Distress - Head Exam Head Exam: ATRAUMATIC, NORMOCEPHALIC - Eye Exam Eye Exam: EOMI, Normal appearance - ENT Exam ENT Exam: Mucous Membranes Moist - Respiratory Exam Respiratory Exam: NORMAL BREATHING PATTERN. absent: Respiratory Distress - Cardiovascular Exam Cardiovascular Exam: REGULAR RHYTHM. absent: Tachycardia - GI/Abdominal Exam GI & Abdominal Exam: Soft. absent: Distended, Guarding, Hernia, Rebound, Rigid , Tenderness Additional comments: well healed midline infraumbilical laparotomy scar - Rectal Exam Rectal Exam: Fecal Impaction (hard stool in rectal vault ). absent: Black Stool , Bloody Stool, Hemorrhoids Additional comments: external skin tag - Extremities Exam Extremities exam: Positive for: normal inspection. Negative for: calf tenderness - Neurological Exam Neurological exam: Alert, Oriented x3 - Psychiatric Exam Psychiatric exam: Anxious - Skin Skin Exam: Dry, Normal Color, Warm Results - Vital Signs Recent Vital Signs: Last Vital Signs Temp 97.9 F 01/28/17 21:50 Pulse 70 01/29/17 04:00 Resp 18 01/29/17 04:00 BP 110/82 01/29/17 04:00 Pulse Ox 98 01/29/17 04:00 - Labs Result Diagrams: 01/28/17 23:22 01/28/17 23:22 Labs: Laboratory Results - last 24 hr 01/29/17 03:54 Stool Occult Blood Negative Assessment & Plan - Assessment and Plan (Free Text) Assessment: 46 y/o male w/ constipation, fecal impaction, and CT reading of ileal-cecal intussusception Plan: -enemas Q4 -NPO -IVFs -f/u bowel movement -recommend GI evaluation -no acute surgical intervention at this time -further recs per Dr. Robles AKWhite PGY3 <Clint Robles B - Last Filed: 02/02/17 20:25> Results - Vital Signs Recent Vital Signs: Last Vital Signs Temp 98 F 01/31/17 08:23 Pulse 75 01/31/17 08:23 Resp 19 01/31/17 08:23 BP 107/73 01/31/17 08:23 Pulse Ox 96 01/31/17 08:23 - Labs Result Diagrams: 01/28/17 23:22 01/28/17 23:22 Labs: Laboratory Results - last 24 hr 01/30/17 07:08 S.cerevisiae IgG Ab 4.7 S.cerevisiae IgA Ab 6.9 Attending/Attestation - Attestation I have personally seen and examined this patient.: Yes I have fully participated in the care of the patient.: Yes I have reviewed all pertinent clinical information: Yes Notes (Text): 02/02/17 20:22 Pt was seen and examined at bedside Agree with above note and assessment Pt with Chronic ileocecal intussusception with Severe constipation No evidence of Bowel obstruction Labs and radiology reviewed Plan : GI consult C/w current mx Serial abdominal exam f/u in am Plan d.w pt in detail Risk and benefit explained in detail.
--- NOTE | 2017-01-29 04:39 | CP.PCM.PN ---
Subjective - Date & Time of Evaluation Date of Evaluation: 01/29/17 Time of Evaluation: 04:31 - Subjective Subjective: Patient presents with some lower abd pain, rectal pain since friday, no bm for last 12 days, abd/pelvis CT shows stool in large intestine, ileocolic intussusception, no focal tenderness, no rebound or guarding, or peritoneal signs, denies nausea/vomiting. Current symptoms appear from constipation. PMH of latent syphilis, recent treatment of fungal rash, h/o twice surg for intussusception, appendicetomy. Will follow surgery recommendations, patient will probably need serial enemas to clear his whole colon. May hold hydrooxyzine as it may contribute in constipation. DVT prophylaxis early ambulation, scds. Objective - Vital Signs/Intake and Output Vital Signs (last 24 hours): Temp Pulse Resp BP Pulse Ox 97.9 F 70 18 110/82 98 01/28/17 21:50 01/29/17 04:00 01/29/17 04:00 01/29/17 04:00 01/29/17 04:00 - Medications Medications: Current Medications Lactated Ringer's (Lactated Ringer's) 1,000 mls @ 100 mls/hr IV .Q10H MIKHAIL
[2017-01-29] MEDS: Lactated Ringer's 1,000 ML IV SCH ×2 (04:47→14:26)
[2017-01-29] MEDS: Morphine 4 MG/ML VIAL IV PRN ×2 (09:43→14:27)
[2017-01-29] MEDS: Pantoprazole 40 mg EC Tab PO SCH (09:43)
--- NOTE | 2017-01-29 10:08 | CP.PCM.HP ---
<Lynda Steele E - Last Filed: 01/29/17 10:27> History of Present Illness - History of Present Illness History of Present Illness: CC: Lower abdominal pain and rectal pain HPI: Patient is a 46 year old male with a PMHx of Intussusception in 2001 ( surgical correction at [facility]), 2006, 2013, and earlier this year, syphillis (was treated in 2009 but did not follow-up to continue tx), schizoaffective disorder , asthma, and anxiety. He complains of lower abdominal pain that radiates down to the rectum. Abdominal pain is noted to be weak and dull/aching, but rectal pain is noted to be sharp and 9/10. Pain began 12 days ago, worsens with positional changes, and feels better when patient is still. Pain is reportedly similar to all of his prior episodes of intussusception but he notes that he first experienced this rectal pain during his last episode. Rectal pain was discovered to be due to an infection that traveled from his colon to his rectum. Additionally, patient reports constipation (12 days), diaphoresis, weakness, dizziness, lightheadedness, nausea, difficulty urinating, 1 year hx of easy bruising, weight loss (20 lbs), and decreased appetite that began 4 months ago. Patient denies any fever, chills, headache, vision changes, sore throat, dysphagia, CP, palpitations, SOB, cough, vomiting, edema, calf pain, recent travel, or sick contacts. PMHx: Intussusception, Anxiety, Asthma, Syphillis, Schizoaffective disorder PSHx: Intussusception correction in 2001 at [facility], appendectomy FHx: Grandfather had OR; lung and liver cancer runs in patients family Medications: As per chart Allergies: NKDA Social Hx: Worked in [employer] and lives at home with partner. Denies tobacco use, illicit drug use and alcohol use Present on Admission - Present on Admission Any Indicators Present on Admission: No Review of Systems - Constitutional Constitutional: Weight Loss, Weakness. absent: Chills, Fever - Cardiovascular Cardiovascular: Diaphoresis, Lightheadedness. absent: Chest Pain, Dyspnea, Palpitations - Respiratory Respiratory: absent: Dyspnea - Gastrointestinal Gastrointestinal: Abdominal Pain, Constipation. absent: Diarrhea, Nausea, Vomiting - Genitourinary Genitourinary: Difficulty Urinating - Neurological Neurological: Dizziness, Weakness Past Patient History - Past Medical History & Family History Past Medical History?: Yes - Past Social History Smoking Status: Never Smoked - CARDIAC Hx Cardiac Disorders: No - PULMONARY Hx Respiratory Disorders: Yes Hx Asthma: Yes Hx Bronchitis: No Hx Chronic Obstructive Pulmonary Disease (COPD): No Hx Emphysema: No Hx Lung Cancer: No Hx Pneumonia: No Hx Pulmonary Edema: No Hx Pulmonary Embolism: No Hx Respiratory Aspiration: No Hx Respiratory Tract Infection: No Hx Sleep Apnea: No Hx Tuberculosis: No - NEUROLOGICAL Hx Neurological Disorder: No - HEENT Hx HEENT Problems: No - RENAL Hx Chronic Kidney Disease: No - ENDOCRINE/METABOLIC Hx Endocrine Disorders: No - HEMATOLOGICAL/ONCOLOGICAL Hx Blood Disorders: No - INTEGUMENTARY Hx Dermatological Problems: Yes Hx Basil Cell: No Hx Calix: No Hx Cellulitis: Yes Hx Eczema: No Hx Melanoma: No Hx Psoriasis: No - MUSCULOSKELETAL/RHEUMATOLOGICAL Hx Falls: No - GASTROINTESTINAL Hx Gastrointestinal Disorders: Yes Hx Bowel Surgery: Yes (SBO 2001) Hx Clostridium Difficile: No Hx Colitis: No Hx Colostomy: No Hx Constipation: No Hx Crohn's Disease: No Hx Diarrhea: No Hx Diverticulitis: No Hx Esophageal Varices: No Hx Fatty Liver Disease: No Hx Gall Bladder Disease: No Hx Gastritis: No Hx Gastroesophageal Reflux: No Hx Hemorrhoids: No Hx Ileostomy: No Hx Irritable Bowel: No Hx Liver Failure: No Hx Nausea: No Hx Pancreatitis: No HX Swallowing Problems: No Hx Ulcer: No Hx Vomiting: No Other/Comment: intussception - GENITOURINARY/GYNECOLOGICAL Hx Genitourinary Disorders: Yes Hx Bladder Cancer: No Hx Bladder Stone: No Hx Hematuria: No Hx Incontinence: No Hx Prostate Cancer: No Hx Prostate Problems: No Hx Reproductive Disorders: No Hx Sexually Transmitted Disorders: Yes (Syphillis) Hx Urinary Tract Infection: No - PSYCHIATRIC Hx Substance Use: No - SURGICAL HISTORY Hx Surgeries: Yes Hx Abdominal Aortic Aneurysm Repair: No Hx Amputation: No Hx Angiogram: No Hx Angioplasty: No Hx Appendectomy: No Hx Arteriovenous Shunt: No Hx Arthroscopy: No Hx Bile Duct Stent: No Hx Breast Biopsy: No Hx Cataract Extraction: No Hx Cardiac Catheterization: No Hx Carotid Endarterectomy: No Hx Section: No Hx Cholecystectomy: No Hx Coronary Artery Bypass Graft: No Hx Coronary Stent: No Hx Dilation and Curettage: No Hx Eye Surgery: No Hx Femoral-Popliteal Bypass Graft: No Hx Gastric Bypass Surgery: No Hx Herniorrhaphy: No Hx Hysterectomy: No Hx Joint Replacement: No Hx Kidney Transplant: No Hx Liver Transplant: No Hx Mastectomy: No Hx Musculoskeletal Surgery: No Hx Open Heart Surgery: No Hx Open Reduction Internal Fixation: No Hx Orthopedic Surgery: No Hx Parathyroidectomy: No Hx Penile Implant: No Hx Pulmonary Surgery: No Hx Splenectomy: No Hx Thyroidectomy: No Hx Tonsillectomy: No Hx Tubal Ligation: No Hx Valve Replacement: No Hx Vascular Surgery: No Hx Vascular Access Device: No Other/Comment: SMALL BOWEL OBSTRUCTION SURGERY - ANESTHESIA Hx Anesthesia: Yes Hx Anesthesia Reactions: No Hx Malignant Hyperthermia: No Has any member of the family had a problem w/ anesthesia?: No Meds Allergies/Adverse Reactions: Allergies Allergy/AdvReac Type Severity Reaction Status Date / Time No Known Allergies Allergy Verified 01/28/17 21:54 Physical Exam - Constitutional Appears: Well, No Acute Distress - Head Exam Head Exam: ATRAUMATIC - Eye Exam Eye Exam: EOMI, Normal appearance - Respiratory Exam Respiratory Exam: Clear to Auscultation Bilateral, NORMAL BREATHING PATTERN - Cardiovascular Exam Cardiovascular Exam: REGULAR RHYTHM, +S1, +S2 - GI/Abdominal Exam GI & Abdominal Exam: Normal Bowel Sounds, Soft, Tenderness. absent: Guarding, Rigid Additional comments: lower abdominal mid-line surgical scar - Extremities Exam Extremities exam: Negative for: pedal edema, tenderness - Neurological Exam Neurological exam: Oriented x3 - Psychiatric Exam Psychiatric exam: Anxious - Skin Skin Exam: Normal Color, Warm Results - Vital Signs Recent Vital Signs: Last Vital Signs Temp 97.5 F L 01/29/17 07:09 Pulse 67 01/29/17 07:09 Resp 20 01/29/17 07:09 BP 122/84 01/29/17 07:09 Pulse Ox 97 01/29/17 07:09 - Labs Result Diagrams: 01/28/17 23:22 01/28/17 23:22 Labs: Laboratory Results - last 24 hr 01/29/17 03:54 Stool Occult Blood Negative Assessment & Plan (1) Intussusception Assessment and Plan: Surgical consult, Dr. Robles---> help appreciated * f/u recommendation Imaging: CT pelvis and abdomen: Ileocolic intussusception amd Findings suggesting constipation. Medications: * Lactated Ringer's (Lactated Ringer's) 1,000 mls @ 100 mls/hr IV .Q10H MIKHAIL * Serial enema Status: Acute (2) Anxiety Assessment and Plan: Continue medication: * Klonopin 1mg PO BID * Hydroxyzine 50mg PO BID ( HELD DUE TO CONSTIPATION) Status: Acute (3) Schizoaffective disorder, unspecified condition Assessment and Plan: Continue home medication: * Risperdone 2mg PO BID Status: Acute (4) Prophylactic measure Assessment and Plan: Ambulates SCDs Protonix 40mg PO daily Status: Acute <Jose Bashir P - Last Filed: 02/01/17 19:37> Results - Vital Signs Recent Vital Signs: Last Vital Signs Temp 98 F 01/31/17 08:23 Pulse 75 01/31/17 08:23 Resp 19 01/31/17 08:23 BP 107/73 01/31/17 08:23 Pulse Ox 96 01/31/17 08:23 - Labs Result Diagrams: 01/28/17 23:22 01/28/17 23:22 Attending/Attestation - Attestation I have personally seen and examined this patient.: Yes I have fully participated in the care of the patient.: Yes I have reviewed all pertinent clinical information: Yes Notes (Text): See note on the same day by me.
--- NOTE | 2017-01-29 13:21 | CP.PCM.CON ---
<Michael Swift - Last Filed: 01/29/17 13:46> History of Present Illness - History of Present Illness History of Present Illness: PGY5 GI Fellow Consult Note Patient is a 46yo male with PMHx significant for recurrent intussusception, syphilis, chlamydia, bipolar disorder/schizoaffective d/o who presents with abdominal and rectal pain. The patient states that he has been severely constipated at home and unable to pass stool for 12 days prior to admission. He began to develop B/L lower quadrant abdominal pain, worse on the left, one week prior to admission and notes that pain began to radiate to the rectum. Pain was worsened by attempting to defecate and became unbearable, thus he came to the ED for further evaluation. He denies any narcotic or OTC analgesic usage and did not try any OTC laxatives prior to arrival in the ED. At present, he admits to continued rectal pain and nausea. He denies any vomiting, hematochezia, melena, weight loss, diarrhea. Separately, the patient has a history of intussusception, diagnosed in 2001. He underwent surgery to correct this but the surgeons did not appreciate any defects on laparotomy. He admits to recurrence of his intussusception in 2006 and 2013 when underlying infections caused this issue to occur. PMHx: See HPI PSHx: Exploratory laparotomy with appendectomy only FHx: Patient denies any history of malignancy in immediate family Social: Denies any EtOH, tobacco or illicit drug use Endo: EGD/Colonoscopy in 2013 at [facility] per patient - colonic ulceration noted at that time Review of Systems - Constitutional Constitutional: absent: Anorexia, Chills, Weight Loss - EENT Eyes: absent: Change in Vision Nose/Mouth/Throat: absent: Sore Throat - Cardiovascular Cardiovascular: absent: Chest Pain, Dyspnea, Edema - Respiratory Respiratory: absent: Cough, Dyspnea, Excessive Mucous Production - Gastrointestinal Gastrointestinal: Abdominal Pain, Bloating, Change in Bowel Habits, Constipation , Cramping, Nausea. absent: Diarrhea, Dyspepsia, Hematemesis, Hematochezia, Loose Stools, Melena, Vomiting - Genitourinary Genitourinary: absent: Dysuria, Urinary Frequency, Urinary Urgency - Musculoskeletal Musculoskeletal: absent: Back Pain, Neck Pain - Integumentary Integumentary: absent: New Lesions, Rash - Neurological Neurological: Dizziness. absent: Numbness, Weakness - Psychiatric Psychiatric: Anxiety, Depression - Endocrine Endocrine: absent: Polydipsia, Polyphagia, Polyuria - Hematologic/Lymphatic Hematologic: absent: Easy Bleeding, Easy Bruising, Lymphadenopathy Past Patient History - Past Medical History & Family History Past Medical History?: Yes - Past Social History Smoking Status: Never Smoked - CARDIAC Hx Cardiac Disorders: No - PULMONARY Hx Respiratory Disorders: Yes Hx Asthma: Yes Hx Bronchitis: No Hx Chronic Obstructive Pulmonary Disease (COPD): No Hx Emphysema: No Hx Lung Cancer: No Hx Pneumonia: No Hx Pulmonary Edema: No Hx Pulmonary Embolism: No Hx Respiratory Aspiration: No Hx Respiratory Tract Infection: No Hx Sleep Apnea: No Hx Tuberculosis: No - NEUROLOGICAL Hx Neurological Disorder: No - HEENT Hx HEENT Problems: No - RENAL Hx Chronic Kidney Disease: No - ENDOCRINE/METABOLIC Hx Endocrine Disorders: No - HEMATOLOGICAL/ONCOLOGICAL Hx Blood Disorders: No - INTEGUMENTARY Hx Dermatological Problems: Yes Hx Basil Cell: No Hx Calix: No Hx Cellulitis: Yes Hx Eczema: No Hx Melanoma: No Hx Psoriasis: No - MUSCULOSKELETAL/RHEUMATOLOGICAL Hx Falls: No - GASTROINTESTINAL Hx Gastrointestinal Disorders: Yes Hx Bowel Surgery: Yes (SBO 2001) Hx Clostridium Difficile: No Hx Colitis: No Hx Colostomy: No Hx Constipation: No Hx Crohn's Disease: No Hx Diarrhea: No Hx Diverticulitis: No Hx Esophageal Varices: No Hx Fatty Liver Disease: No Hx Gall Bladder Disease: No Hx Gastritis: No Hx Gastroesophageal Reflux: No Hx Hemorrhoids: No Hx Ileostomy: No Hx Irritable Bowel: No Hx Liver Failure: No Hx Nausea: No Hx Pancreatitis: No HX Swallowing Problems: No Hx Ulcer: No Hx Vomiting: No Other/Comment: intussception - GENITOURINARY/GYNECOLOGICAL Hx Genitourinary Disorders: Yes Hx Bladder Cancer: No Hx Bladder Stone: No Hx Hematuria: No Hx Incontinence: No Hx Prostate Cancer: No Hx Prostate Problems: No Hx Reproductive Disorders: No Hx Sexually Transmitted Disorders: Yes (Syphillis) Hx Urinary Tract Infection: No - PSYCHIATRIC Hx Substance Use: No - SURGICAL HISTORY Hx Surgeries: Yes Hx Abdominal Aortic Aneurysm Repair: No Hx Amputation: No Hx Angiogram: No Hx Angioplasty: No Hx Appendectomy: No Hx Arteriovenous Shunt: No Hx Arthroscopy: No Hx Bile Duct Stent: No Hx Breast Biopsy: No Hx Cataract Extraction: No Hx Cardiac Catheterization: No Hx Carotid Endarterectomy: No Hx Section: No Hx Cholecystectomy: No Hx Coronary Artery Bypass Graft: No Hx Coronary Stent: No Hx Dilation and Curettage: No Hx Eye Surgery: No Hx Femoral-Popliteal Bypass Graft: No Hx Gastric Bypass Surgery: No Hx Herniorrhaphy: No Hx Hysterectomy: No Hx Joint Replacement: No Hx Kidney Transplant: No Hx Liver Transplant: No Hx Mastectomy: No Hx Musculoskeletal Surgery: No Hx Open Heart Surgery: No Hx Open Reduction Internal Fixation: No Hx Orthopedic Surgery: No Hx Parathyroidectomy: No Hx Penile Implant: No Hx Pulmonary Surgery: No Hx Splenectomy: No Hx Thyroidectomy: No Hx Tonsillectomy: No Hx Tubal Ligation: No Hx Valve Replacement: No Hx Vascular Surgery: No Hx Vascular Access Device: No Other/Comment: SMALL BOWEL OBSTRUCTION SURGERY - ANESTHESIA Hx Anesthesia: Yes Hx Anesthesia Reactions: No Hx Malignant Hyperthermia: No Has any member of the family had a problem w/ anesthesia?: No Meds Allergies/Adverse Reactions: Allergies Allergy/AdvReac Type Severity Reaction Status Date / Time No Known Allergies Allergy Verified 01/28/17 21:54 - Medications Medications: Current Medications Clonazepam (Klonopin) 1 mg PO BID [facility] Last Admin: 01/29/17 09:42 Dose: 1 mg Docusate Sodium (Colace) 100 mg PO TID [facility] Last Admin: 01/29/17 12:02 Dose: 100 mg Heparin Sodium (Porcine) (Heparin) 5,000 units SC Q12 [facility] Lactated Ringer's (Lactated Ringer's) 1,000 mls @ 100 mls/hr IV .Q10H [facility] Last Admin: 01/29/17 04:47 Dose: 100 mls/hr Morphine Sulfate (Morphine) 1 mg IV Q4 PRN PRN Reason: Pain, moderate (4-7) Last Admin: 01/29/17 09:43 Dose: 1 mg Pantoprazole Sodium (Protonix Ec Tab) 40 mg PO DAILY [facility] Last Admin: 01/29/17 09:43 Dose: 40 mg Risperidone (Risperdal Tab) 2 mg PO BID [facility] Last Admin: 01/29/17 09:43 Dose: 2 mg Physical Exam - Constitutional Appears: Non-toxic, No Acute Distress - Eye Exam Eye Exam: EOMI, PERRL - ENT Exam ENT Exam: Mucous Membranes Moist - Respiratory Exam Respiratory Exam: Clear to Auscultation Bilateral. absent: Rales, Rhonchi, Wheezes - Cardiovascular Exam Cardiovascular Exam: RRR, +S1, +S2 - GI/Abdominal Exam GI & Abdominal Exam: Normal Bowel Sounds, Soft. absent: Distended, Firm, Guarding, Organomegaly, Rigid, Tenderness Additional comments: healed midline surgical scar - Extremities Exam Extremities exam: Positive for: normal inspection. Negative for: pedal edema - Neurological Exam Neurological exam: Alert, Oriented x3 - Psychiatric Exam Psychiatric exam: Anxious - Skin Skin Exam: Dry, Warm Results - Vital Signs Recent Vital Signs: Last Vital Signs Temp 97.5 F L 01/29/17 07:09 Pulse 67 01/29/17 07:09 Resp 20 01/29/17 07:09 BP 122/84 01/29/17 07:09 Pulse Ox 97 01/29/17 07:09 - Labs Result Diagrams: 01/28/17 23:22 01/28/17 23:22 Labs: Laboratory Results - last 24 hr 01/29/17 03:54 Stool Occult Blood Negative Assessment & Plan - Assessment and Plan (Free Text) Assessment: Patient is a 46yo male with PMHx significant for recurrent intussusception, syphilis, chlamydia, bipolar disorder/schizoaffective d/o who presents with abdominal and rectal pain -Severe constipation -Ileo-cecal intussusception Plan: -The patient would benefit from aggressive treatment of his constipation -Recommend digital disimpaction -Would continue with enemas as tolerated; can also use mineral oil enema in addition to tap water -Furthermore, patient should be continued on Miralax 17g PO Daily -Regarding intussusception and history of colonic ulceration on prior colonoscopy; patient would benefit from repeat outpatient colonoscopy to evaluate for any underlying lead point mass lesion/polyp and rule out other etiologies such as infection/inflammatory (including IBD or enlarged Peyer patch ) -Clear liquid diet until current stool impaction resolves - Date & Time Date: 01/29/17 Time: 13:32 <Jaylen Rawls - Last Filed: 01/29/17 14:36> Meds - Medications Medications: Current Medications Clonazepam (Klonopin) 1 mg PO BID [facility] Last Admin: 01/29/17 09:42 Dose: 1 mg Docusate Sodium (Colace) 100 mg PO TID [facility] Last Admin: 01/29/17 13:32 Dose: Not Given Heparin Sodium (Porcine) (Heparin) 5,000 units SC Q12 [facility] Lactated Ringer's (Lactated Ringer's) 1,000 mls @ 100 mls/hr IV .Q10H [facility] Last Admin: 01/29/17 04:47 Dose: 100 mls/hr Morphine Sulfate (Morphine) 1 mg IV Q4 PRN PRN Reason: Pain, moderate (4-7) Last Admin: 01/29/17 09:43 Dose: 1 mg Pantoprazole Sodium (Protonix Ec Tab) 40 mg PO DAILY [facility] Last Admin: 01/29/17 09:43 Dose: 40 mg Risperidone (Risperdal Tab) 2 mg PO BID [facility] Last Admin: 01/29/17 09:43 Dose: 2 mg Results - Vital Signs Recent Vital Signs: Last Vital Signs Temp 97.5 F L 01/29/17 07:09 Pulse 67 01/29/17 07:09 Resp 20 01/29/17 07:09 BP 122/84 01/29/17 07:09 Pulse Ox 97 01/29/17 07:09 - Labs Result Diagrams: 01/28/17 23:22 01/28/17 23:22 Labs: Laboratory Results - last 24 hr 01/29/17 03:54 Stool Occult Blood Negative Attending/Attestation - Attestation I have personally seen and examined this patient.: Yes I have fully participated in the care of the patient.: Yes I have reviewed all pertinent clinical information: Yes Notes (Text): 01/29/17 14:26 I have seen and examined patient with GI fellow. Agree with above documentation with the following additions. In brief, this is a 46 year old male with history of schizoaffective disorder, small bowel intussusception who presents to hospital with complaint of progressive abdominal pain over the past one week. He reports recent severe constipation and has not had a bowel movement in past 12 days which is atypical for him. He usually has a normal bowel movement once every other day. He describes sharp sarah-umbilical pain, 8/ 10 intensity, radiating to LLQ and rectum. He denies associated nausea, vomiting, fever/chills, weight loss, or rectal bleeding. He denies any recent medication changes. He had a colonoscopy in 2013 at [facility] which showed a colonic ulceration according to patient. Review of vitals from today are normal. Schizoaffective disorder Abdominal pain Constipation, sudden onset CT imaging reviewed by me showing significant fecal retention throughout colon, ileocolic intussusception - Clear liquid diet as tolerated - Continue with supportive care, IVF hydration and pain control - Suggest aggressive management of constipation including initial manual disimpaction followed by bowel regimen and repeat enema administration - Surgical consultation has been called given presence of intussusception, follow up recommendations - Obtain prior endoscopic reports from [facility] - Patient would benefit from repeat colonoscopy with small bowel intubation in order to rule out mass lesion or inflammatory disorder which contributes to recurrent symptoms. This can be done electively as outpatient following resolution of acute symptoms. Will continue to monitor patient clinical course.
--- NOTE | 2017-01-29 15:14 | CP.PCM.PN ---
<Beau Ramirez - Last Filed: 01/29/17 15:10> Subjective - Date & Time of Evaluation Date of Evaluation: 01/29/17 Time of Evaluation: 15:10 - Subjective Subjective: PGY1 Note for Dr. Colón HPI: Patient seen and examined at bedside. Doing well. Talking fast. States his belly still hurts. Last BM was 15 days ago. States he would like to talk to someone regarding his schizoaffective disorder. Had a colonoscopy at [facility] but did not follow up. I told him i will try to get the records as he may have IBD as the cause of his recurrent intussception Objective - Vital Signs/Intake and Output Vital Signs (last 24 hours): Temp Pulse Resp BP Pulse Ox 97.5 F L 67 20 122/84 97 01/29/17 07:09 01/29/17 07:09 01/29/17 07:09 01/29/17 07:09 01/29/17 07:09 Intake and Output: 01/29/17 01/29/17 06:59 18:59 Intake Total 300 850 Balance 300 850 - Medications Medications: Current Medications Clonazepam (Klonopin) 1 mg PO BID [facility] Last Admin: 01/29/17 09:42 Dose: 1 mg Docusate Sodium (Colace) 100 mg PO TID [facility] Last Admin: 01/29/17 13:32 Dose: Not Given Heparin Sodium (Porcine) (Heparin) 5,000 units SC Q12 [facility] Lactated Ringer's (Lactated Ringer's) 1,000 mls @ 100 mls/hr IV .Q10H [facility] Last Admin: 01/29/17 14:26 Dose: 100 mls/hr Mineral Oil (Fleet Mineral Oil Enema) 135 ml RC Q4 [facility] Morphine Sulfate (Morphine) 1 mg IV Q4 PRN PRN Reason: Pain, moderate (4-7) Last Admin: 01/29/17 14:27 Dose: 1 mg Pantoprazole Sodium (Protonix Ec Tab) 40 mg PO DAILY [facility] Last Admin: 01/29/17 09:43 Dose: 40 mg Polyethylene Glycol (Miralax) 17 gm PO DAILY [facility] Risperidone (Risperdal Tab) 2 mg PO BID [facility] Last Admin: 01/29/17 09:43 Dose: 2 mg - Constitutional Appears: Well, Non-toxic, No Acute Distress - Head Exam Head Exam: ATRAUMATIC, NORMAL INSPECTION, NORMOCEPHALIC - Eye Exam Eye Exam: EOMI Pupil Exam: NORMAL ACCOMODATION - ENT Exam ENT Exam: Mucous Membranes Moist - Respiratory Exam Respiratory Exam: Clear to Ausculation Bilateral - Cardiovascular Exam Cardiovascular Exam: REGULAR RHYTHM - GI/Abdominal Exam GI & Abdominal Exam: Soft, Normal Bowel Sounds. absent: Distended, Tenderness - Extremities Exam Extremities Exam: Joint Swelling. absent: Tenderness - Neurological Exam Neurological Exam: Alert, Awake, Oriented x3 - Psychiatric Exam Psychiatric exam: Normal Affect, Normal Mood Additional comments: pressured speech? - Skin Skin Exam: Dry, Intact, Normal Color, Warm Assessment and Plan - Assessment and Plan (Free Text) Assessment: Intussusception Surgical consult, Dr. Robles CT pelvis and abdomen: Ileocolic intussusception amd Findings suggesting constipation. Lactated Ringer's (Lactated Ringer's) 1,000 mls @ 100 mls/hr IV .Q10H [facility] GI (Curly) * Mineral oil enema Q4 * Colonoscopy to determine lead point for intussiception Anxiety Psych (Andrea) - F/U reccs Klonopin 1mg PO BID Hydroxyzine 50mg PO BID (HELD DUE TO CONSTIPATION) Schizoaffective disorder, unspecified condition Psych (Andrea) - F/U reccs Risperdone 2mg PO BID Prophylactic measure Ambulates SCDs Protonix 40mg PO daily <Tirso Colón - Last Filed: 01/29/17 19:06> Objective - Vital Signs/Intake and Output Vital Signs (last 24 hours): Temp Pulse Resp BP Pulse Ox 98.1 F 68 20 115/74 97 01/29/17 17:05 01/29/17 17:05 01/29/17 17:05 01/29/17 17:05 01/29/17 17:05 Intake and Output: 01/29/17 01/30/17 18:59 06:59 Intake Total 850 Balance 850 - Medications Medications: Current Medications Clonazepam (Klonopin) 1 mg PO BID [facility] Last Admin: 01/29/17 17:21 Dose: 1 mg Docusate Sodium (Colace) 100 mg PO TID [facility] Last Admin: 01/29/17 17:21 Dose: 100 mg Heparin Sodium (Porcine) (Heparin) 5,000 units SC Q12 [facility] Lactated Ringer's (Lactated Ringer's) 1,000 mls @ 100 mls/hr IV .Q10H [facility] Last Admin: 01/29/17 14:26 Dose: 100 mls/hr Mineral Oil (Fleet Mineral Oil Enema) 135 ml RC Q4 [facility] Last Admin: 01/29/17 16:00 Dose: 135 ml Morphine Sulfate (Morphine) 1 mg IV Q4 PRN PRN Reason: Pain, moderate (4-7) Last Admin: 01/29/17 14:27 Dose: 1 mg Pantoprazole Sodium (Protonix Ec Tab) 40 mg PO DAILY [facility] Last Admin: 01/29/17 09:43 Dose: 40 mg Polyethylene Glycol (Miralax) 17 gm PO DAILY [facility] Last Admin: 01/29/17 15:19 Dose: 17 gm Risperidone (Risperdal Tab) 2 mg PO BID [facility] Last Admin: 01/29/17 17:21 Dose: 2 mg Attending/Attestation - Attestation I have personally seen and examined this patient.: Yes I have fully participated in the care of the patient.: Yes I have reviewed all pertinent clinical information, including history, physical exam and plan: Yes Notes (Text): 01/29/17 19:05 Patient was seen and examined at 12 PM 01/29/17 Exam, assessment and plan were thoroughly gone over with the resident. Tirso Colón D.O.
[2017-01-29] MEDS: POLYETHYLENE GLYCOL 3350 17 GM/Dose PACKET PO SCH (15:19)
[2017-01-29] MEDS: Mineral Oil Enema 135 ml RC SCH ×2 (16:00→20:05)
[2017-01-30] MEDS: Mineral Oil Enema 135 ml RC SCH ×5 (00:03→12:31)
[2017-01-30] MEDS: Lactated Ringer's 1,000 ML IV SCH (00:36)
--- NOTE | 2017-01-30 06:28 | CP.PCM.PN ---
<Beau Ramirez - Last Filed: 01/30/17 09:13> Subjective - Date & Time of Evaluation Date of Evaluation: 01/30/17 Time of Evaluation: 06:28 - Subjective Subjective: PGY1 Note for Dr. Colón HPI:Patient seen and examined at bedside.Doing well. Laying comfortably in bed. Still no BM. Said he had some "liquid stool" after the enema but could be the enema and not actual stool. Complaining of abdominal discomfort. Denies chest pain, N/V/F, SOB. Objective - Vital Signs/Intake and Output Vital Signs (last 24 hours): Temp Pulse Resp BP Pulse Ox 97.3 F L 73 20 107/73 98 01/30/17 00:00 01/30/17 00:00 01/30/17 00:00 01/30/17 00:00 01/30/17 00:00 Intake and Output: 01/29/17 01/30/17 18:59 06:59 Intake Total 850 Balance 850 - Medications Medications: Current Medications Clonazepam (Klonopin) 1 mg PO BID [facility] Last Admin: 01/29/17 17:21 Dose: 1 mg Docusate Sodium (Colace) 100 mg PO TID [facility] Last Admin: 01/29/17 17:21 Dose: 100 mg Heparin Sodium (Porcine) (Heparin) 5,000 units SC Q12 [facility] Last Admin: 01/29/17 21:08 Dose: 5,000 units Lactated Ringer's (Lactated Ringer's) 1,000 mls @ 100 mls/hr IV .Q10H [facility] Last Admin: 01/30/17 00:36 Dose: 100 mls/hr Mineral Oil (Fleet Mineral Oil Enema) 135 ml RC Q4 [facility] Last Admin: 01/30/17 04:48 Dose: Not Given Morphine Sulfate (Morphine) 1 mg IV Q4 PRN PRN Reason: Pain, moderate (4-7) Pantoprazole Sodium (Protonix Ec Tab) 40 mg PO DAILY [facility] Last Admin: 01/29/17 09:43 Dose: 40 mg Polyethylene Glycol (Miralax) 17 gm PO DAILY [facility] Last Admin: 01/29/17 15:19 Dose: 17 gm Risperidone (Risperdal Tab) 2 mg PO BID [facility] Last Admin: 01/29/17 17:21 Dose: 2 mg - Constitutional Appears: Well, Non-toxic, No Acute Distress - Head Exam Head Exam: ATRAUMATIC, NORMAL INSPECTION, NORMOCEPHALIC - Eye Exam Eye Exam: EOMI - ENT Exam ENT Exam: Mucous Membranes Moist - Respiratory Exam Respiratory Exam: Clear to Ausculation Bilateral, NORMAL BREATHING PATTERN - Cardiovascular Exam Cardiovascular Exam: REGULAR RHYTHM - GI/Abdominal Exam GI & Abdominal Exam: Soft, Normal Bowel Sounds. absent: Distended, Tenderness - Neurological Exam Neurological Exam: Alert, Awake, Oriented x3 - Psychiatric Exam Psychiatric exam: Normal Affect, Normal Mood - Skin Skin Exam: Dry, Intact, Normal Color, Warm Assessment and Plan - Assessment and Plan (Free Text) Assessment: Intussusception * Surgery ([facility]rav[facility]) * CT pelvis and abdomen: Ileocolic intussusception amd Findings suggesting constipation. * F/U [facility] * GI (Curly) * Mineral oil enema Q4 * Miralax 17g QD * Colonoscopy as outpatient * Manual disimpaction done at bedside yesterday, no stool in rectal vault Anxiety * Psych (Andrea) - F/U reccs * Klonopin 1mg PO BID Schizoaffective disorder, unspecified condition * Psych (Andrea) - F/U reccs * Risperdone 2mg PO BID Prophylactic measure * Ambulates * SCDs * Protonix 40mg PO daily <Tirso Colón - Last Filed: 01/30/17 18:29> Objective - Vital Signs/Intake and Output Vital Signs (last 24 hours): Temp Pulse Resp BP Pulse Ox 98.2 F 85 20 108/73 97 01/30/17 15:00 01/30/17 15:00 01/30/17 15:00 01/30/17 15:00 01/30/17 15:00 Intake and Output: 01/30/17 01/30/17 06:59 18:59 Intake Total 1450 Balance 1450 - Medications Medications: Current Medications Clonazepam (Klonopin) 1 mg PO BID [facility] Last Admin: 01/30/17 17:31 Dose: 1 mg Heparin Sodium (Porcine) (Heparin) 5,000 units SC Q12 [facility] Last Admin: 01/30/17 09:00 Dose: 5,000 units Morphine Sulfate (Morphine) 1 mg IV Q4 PRN PRN Reason: Pain, moderate (4-7) Pantoprazole Sodium (Protonix Ec Tab) 40 mg PO DAILY [facility] Last Admin: 01/30/17 09:00 Dose: 40 mg Polyethylene Glycol (Miralax) 17 gm PO DAILY [facility] Last Admin: 01/30/17 09:00 Dose: 17 gm Risperidone (Risperdal Tab) 2 mg PO BID [facility] Last Admin: 01/30/17 17:31 Dose: 2 mg Attending/Attestation - Attestation I have personally seen and examined this patient.: Yes I have fully participated in the care of the patient.: Yes I have reviewed all pertinent clinical information, including history, physical exam and plan: Yes Notes (Text): 01/30/17 18:21 Patient was seen and examined at 2:55 PM 01/30/17. He is tolerating his liquid diet without n/v Please note that the patient's exam is completely unremarkable. He has a midline surgical scar inferior to the umbilicus. Bowel Sounds are present in all 4 quadrants, there are NO high pitched bowel sounds, the abdomen is soft and non tender, there is no distention, and the patient is not in any kind of distress. I spoke with Surgeon Dr. Robles and he explained that the intussusception is likely chronic in nature. When Dr. Robles spoke with patient, patient stated that he had a bowel movement. Dr. Robles also spoke with GI Dr. Rawls who recommended full bowel regimen for the stool in the colon and outpatient colonoscopy. Dr. Robles has also cleared patient from surgical standpoint and provided patient with his office contact information and would like for him to follow up with him after discharge and he has recommend [facility] and this has been ordered. We will discharge patient morning of 01/31/17. Tirso Colón D.O.
--- NOTE | 2017-01-30 07:21 | CP.PCM.PN ---
Addendum entered and electronically signed by Chelsy Palacios DO 01/30/17 15:22: OK to [place] for surgical standpoint DW Dr. Robles Original Note: <Keyanna Hammer - Last Filed: 01/30/17 07:14> Subjective - Date & Time of Evaluation Date of Evaluation: 01/30/17 Time of Evaluation: 07:14 - Subjective Subjective: Patient was seen and examined at bedside in no acute distress. Patient reports having discomfort in his lower abdomen but denies pain. Patient had a liquid bowel movement after having tap water enema. Patient denies having chest pain, shortness of breath, nausea, vomiting. 12-point review of systems otherwise negative. Objective - Vital Signs/Intake and Output Vital Signs (last 24 hours): Temp Pulse Resp BP Pulse Ox 97.3 F L 73 20 107/73 98 01/30/17 00:00 01/30/17 00:00 01/30/17 00:00 01/30/17 00:00 01/30/17 00:00 - Medications Medications: Current Medications Clonazepam (Klonopin) 1 mg PO BID [facility] Last Admin: 01/29/17 17:21 Dose: 1 mg Docusate Sodium (Colace) 100 mg PO TID [facility] Last Admin: 01/29/17 17:21 Dose: 100 mg Heparin Sodium (Porcine) (Heparin) 5,000 units SC Q12 [facility] Last Admin: 01/29/17 21:08 Dose: 5,000 units Lactated Ringer's (Lactated Ringer's) 1,000 mls @ 100 mls/hr IV .Q10H [facility] Last Admin: 01/30/17 00:36 Dose: 100 mls/hr Mineral Oil (Fleet Mineral Oil Enema) 135 ml RC Q4 [facility] Last Admin: 01/30/17 04:48 Dose: Not Given Morphine Sulfate (Morphine) 1 mg IV Q4 PRN PRN Reason: Pain, moderate (4-7) Pantoprazole Sodium (Protonix Ec Tab) 40 mg PO DAILY [facility] Last Admin: 01/29/17 09:43 Dose: 40 mg Polyethylene Glycol (Miralax) 17 gm PO DAILY [facility] Last Admin: 01/29/17 15:19 Dose: 17 gm Risperidone (Risperdal Tab) 2 mg PO BID [facility] Last Admin: 01/29/17 17:21 Dose: 2 mg - Head Exam Head Exam: ATRAUMATIC, NORMAL INSPECTION - Eye Exam Eye Exam: EOMI, Normal appearance - ENT Exam ENT Exam: Mucous Membranes Moist - Respiratory Exam Respiratory Exam: Clear to Ausculation Bilateral, NORMAL BREATHING PATTERN. absent: Rales, Rhonchi, Wheezes - Cardiovascular Exam Cardiovascular Exam: +S1, +S2. absent: Bradycardia, Tachycardia - GI/Abdominal Exam GI & Abdominal Exam: Soft, Tenderness (RLQ, LLQ), Normal Bowel Sounds. absent: Distended, Firm - Extremities Exam Extremities Exam: absent: Pedal Edema - Neurological Exam Neurological Exam: Alert, Awake, Oriented x3 - Psychiatric Exam Psychiatric exam: Normal Affect, Normal Mood - Skin Skin Exam: Dry, Intact, Normal Color, Warm Assessment and Plan - Assessment and Plan (Free Text) Assessment: 46 year old male consulted for ileaocecal intussusception and fecal impaction, s /p fleet and tap water enema. - Advance diet to clear liquid diet. - Continue to monitor bowel function. - Consider gastrograffin study. - Continue medical management as per hospitalist team. <Clint Robles B - Last Filed: 02/02/17 20:29> Objective - Vital Signs/Intake and Output Vital Signs (last 24 hours): Temp Pulse Resp BP Pulse Ox 98 F 75 19 107/73 96 01/31/17 08:23 01/31/17 08:23 01/31/17 08:23 01/31/17 08:23 01/31/17 08:23 Attending/Attestation - Attestation I have personally seen and examined this patient.: Yes I have fully participated in the care of the patient.: Yes I have reviewed all pertinent clinical information, including history, physical exam and plan: Yes Notes (Text): 02/02/17 20:27 Pt was seen and examined at bedside Agree with above note and assessment Pt with Chronic ileocecal intussusception with Severe constipation Pt is passing gas, had BM after enema Still c/o abdominal pain GI consult appreciated, Out pt colonoscopy No need for any surgical intervention at present f.u as out pt. Plan d.w pt in detail Risk and benefit explained in detail.
--- NOTE | 2017-01-30 07:46 | CP.PCM.PN ---
<Susi Cagle - Last Filed: 01/30/17 08:05> Subjective - Date & Time of Evaluation Date of Evaluation: 01/30/17 Time of Evaluation: 07:15 - Subjective Subjective: GI Fellow PGY4 Progress Note Pt seen and evaluated at bedside, pt reports slight improvement in abdominal and rectal pain. Pt reports attempted manual fecal disimpaction yesterday with only a small amount of stool removed followed by enema resulting in moderate amount of brown liquid stool. Pt denies fevers, chills, melena, hematocheiza, nausea or vomiting. ROS: A 12pt ROS was obtained and was negative except as above. Objective - Vital Signs/Intake and Output Vital Signs (last 24 hours): Temp Pulse Resp BP Pulse Ox 97.3 F L 73 20 107/73 98 01/30/17 00:00 01/30/17 00:00 01/30/17 00:00 01/30/17 00:00 01/30/17 00:00 Intake and Output: 01/30/17 01/30/17 06:59 18:59 Intake Total 800 Balance 800 - Medications Medications: Current Medications Clonazepam (Klonopin) 1 mg PO BID [facility] Last Admin: 01/29/17 17:21 Dose: 1 mg Docusate Sodium (Colace) 100 mg PO TID [facility] Last Admin: 01/29/17 17:21 Dose: 100 mg Heparin Sodium (Porcine) (Heparin) 5,000 units SC Q12 [facility] Last Admin: 01/29/17 21:08 Dose: 5,000 units Lactated Ringer's (Lactated Ringer's) 1,000 mls @ 100 mls/hr IV .Q10H [facility] Last Admin: 01/30/17 00:36 Dose: 100 mls/hr Mineral Oil (Fleet Mineral Oil Enema) 135 ml RC Q4 [facility] Last Admin: 01/30/17 04:48 Dose: Not Given Morphine Sulfate (Morphine) 1 mg IV Q4 PRN PRN Reason: Pain, moderate (4-7) Pantoprazole Sodium (Protonix Ec Tab) 40 mg PO DAILY [facility] Last Admin: 01/29/17 09:43 Dose: 40 mg Polyethylene Glycol (Miralax) 17 gm PO DAILY [facility] Last Admin: 01/29/17 15:19 Dose: 17 gm Risperidone (Risperdal Tab) 2 mg PO BID [facility] Last Admin: 01/29/17 17:21 Dose: 2 mg - Constitutional Appears: Well, Non-toxic - Head Exam Head Exam: ATRAUMATIC, NORMAL INSPECTION, NORMOCEPHALIC - Eye Exam Eye Exam: EOMI, Normal appearance, PERRL Pupil Exam: PERRL - ENT Exam ENT Exam: Mucous Membranes Moist - Neck Exam Neck Exam: Full ROM, Normal Inspection - Respiratory Exam Respiratory Exam: Clear to Ausculation Bilateral, NORMAL BREATHING PATTERN - Cardiovascular Exam Cardiovascular Exam: RRR, +S1, +S2 - GI/Abdominal Exam GI & Abdominal Exam: Soft, Tenderness, Normal Bowel Sounds. absent: Distended, Guarding - Rectal Exam Rectal Exam: Deferred - Extremities Exam Extremities Exam: Full ROM, Normal Inspection - Back Exam Back Exam: NORMAL INSPECTION - Neurological Exam Neurological Exam: Alert, Awake, Oriented x3 - Psychiatric Exam Psychiatric exam: Normal Affect, Normal Mood - Skin Skin Exam: Dry, Intact, Normal Color, Warm Assessment and Plan - Assessment and Plan (Free Text) Assessment: This is a 46yM with a pmhx of schizoaffective disorder, syphilis, chlamydia, small bowel intussusception who is pw co abdominal/rectal pain and constipation with no bowel movement in past 12 days. 1. Abdominal and rectal pain 2. Severe Constipation 3. Ileocolic intussusception 4. Schizoaffective disorder Plan: - Continue Clear liquid diet as tolerated - Continue supportive care with IVF hydration and pain control - Recommend primary team to reattempt manual disimpaction followed by aggressive bowel regimen with enemas and Miralax - No plan for endoscopic evaluation at this time, pt will need a repeat colonoscopy as an outpt to rule out mass, infection or inflammatory disease which maybe causing recurrent symptoms - Will continue to follow closely <Jaylen Rawls - Last Filed: 01/30/17 12:23> Objective - Vital Signs/Intake and Output Vital Signs (last 24 hours): Temp Pulse Resp BP Pulse Ox 97.5 F L 72 20 124/80 98 01/30/17 10:10 01/30/17 10:10 01/30/17 10:10 01/30/17 10:10 01/30/17 10:10 Intake and Output: 01/30/17 01/30/17 06:59 18:59 Intake Total 800 Balance 800 - Medications Medications: Current Medications Clonazepam (Klonopin) 1 mg PO BID [facility] Last Admin: 01/30/17 09:00 Dose: 1 mg Docusate Sodium (Colace) 100 mg PO TID [facility] Last Admin: 01/30/17 09:00 Dose: 100 mg Heparin Sodium (Porcine) (Heparin) 5,000 units SC Q12 [facility] Last Admin: 01/30/17 09:00 Dose: 5,000 units Mineral Oil (Fleet Mineral Oil Enema) 135 ml RC Q4 [facility] Last Admin: 01/30/17 08:58 Dose: 135 ml Morphine Sulfate (Morphine) 1 mg IV Q4 PRN PRN Reason: Pain, moderate (4-7) Pantoprazole Sodium (Protonix Ec Tab) 40 mg PO DAILY [facility] Last Admin: 01/30/17 09:00 Dose: 40 mg Polyethylene Glycol (Miralax) 17 gm PO DAILY [facility] Last Admin: 01/30/17 09:00 Dose: 17 gm Risperidone (Risperdal Tab) 2 mg PO BID [facility] Last Admin: 01/30/17 09:00 Dose: 2 mg Attending/Attestation - Attestation I have personally seen and examined this patient.: Yes I have fully participated in the care of the patient.: Yes I have reviewed all pertinent clinical information, including history, physical exam and plan: Yes Notes (Text): 01/30/17 12:20 I have seen and examined patient with GI fellow. No acute events overnight, he reports moderate relief of abdominal pain following liquid bowel movement after administration of enema. He denies nausea, vomiting, fever/chills. Tolerating PO liquids without difficulty. Review of vitals from today are normal. Schizoaffective disorder Ileocecal intussusception Abdominal pain, new onset constipation - Continue with clear liquid diet as tolerated - Follow up surgical recommendations - Continue with IVF hydration, pain control - Suggest manual disimpaction by medical team followed by repeat administration of mineral oil enema - Continue with bowel regimen to prevent constipation - Patient will require elective outpatient colonoscopy following resolution of acute symptoms
[2017-01-30] MEDS: POLYETHYLENE GLYCOL 3350 17 GM/Dose PACKET PO SCH (09:00)
[2017-01-30] MEDS: Pantoprazole 40 mg EC Tab PO SCH (09:00)
--- NOTE | 2017-01-30 13:50 | PCM.PSYCH ---
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 He presented to the ED for abdominal pain and was admitted for intussusception. Psych consult called for pt's history of schizoaffective disorder, bipolar type. He has a history of psychiatric hospitalizations at [facility] and [place] with the most recent occurrence in 2011. He reports that he is currently well- managed and sees a psychiatrist in [place] quarterly. He has seen this psychiatrist at regular intervals since 2006. He currently reports racing thoughts and restlesness which he attributes to frustration regarding his current medical condition and need for hospitalization. He denies insomnia, depression, hallucinations, paranoia, SI and HI. He denies the use of alcohol, tobacco and drugs. Current Medications: Active Medications Generic Name Dose Route Start Last Admin Trade Name Freq PRN Reason Stop Dose Admin Clonazepam 1 mg 01/29/17 10:00 01/30/17 09:00 Klonopin PO 1 mg BID MIK[facility]IL Administration Docusate Sodium 100 mg 01/29/17 11:08 01/30/17 09:00 Colace PO 100 mg TID [facility]IL Administration Heparin Sodium (Porcine) 5,000 units 01/29/17 22:00 01/30/17 09:00 Heparin SC 5,000 units Q12 [facility] Administration Mineral Oil 135 ml 01/29/17 16:00 01/30/17 12:31 Fleet Mineral Oil Enema RC 135 ml Q4 [facility] Administration Morphine Sulfate 1 mg 01/29/17 23:45 Morphine IV Q4 PRN Pain, moderate (4-7) Pantoprazole Sodium 40 mg 01/29/17 10:00 01/30/17 09:00 Protonix Ec Tab PO 40 mg DAILY [facility] Administration Polyethylene Glycol 17 gm 01/29/17 15:00 01/30/17 09:00 Miralax PO 17 gm DAILY [facility] Administration Risperidone 2 mg 01/29/17 10:00 01/30/17 09:00 Risperdal Tab PO 2 mg BID [facility]IL Administration Past Psychiatric History - Past Psychiatric History Previous Treatment History: Inpatient History of ETOH/Drug Use: Denies Pertinent Medical Hx (Current Medical&Sleep Prob, Allergies): Allergies Allergy/AdvReac Type Severity Reaction Status Date / Time No Known Allergies Allergy Verified 01/28/17 21:54 Risperidone [Risperdal] 2 mg PO BID #0 07/27/13 clonazePAM [clonAZEPAM] 1 mg PO BID #0 07/27/13 Omeprazole 40 mg PO DAILY #0 11/06/16 hydrOXYzine Pamoate [Vistaril] 50 mg PO BID 01/28/17 Review of Systems - Review of Systems All systems: reviewed and no additional remarkable complaints except - Neurological Neurological: UNREMARKABLE - Psychiatric Psychiatric: Anxiety. absent: Abnormal Sleep Pattern, Depression, Hallucinations, Homicidal Ideation, Hopelessness, Irritability, Paranoia, Suicidal Ideation Mental Status Examination - Personal Presentation Personal Presentation: Looks stated age - Affect Affect: Broad - Motor Activity Motor Activity: Psychomotor Agitation - Reliability in Providing Information Reliability in Providing Information: Good - Speech Speech: Organized, Relevant, Coherent - Mood Mood: Neutral - Formal Thought Process Formal Thought Process: No Impairment - Obsessions/Compulsions Obsessions: None Compulsions: None - Cognitive Functions Orientation: Person, Place, Situation, Time Sensorium: Alert Attention/Concentration: Attentive Abstract Thinking: [place] Estimate of Intelligence: Average Judgement: Intact, as evidence by: Insight regarding need for hospitalization Memory: Recent intact, as evidence by: Ability to recall events of the day, Remote intact, as evidenced by: Abilit to recall sig. life events - Strength & Assets Inventory Strength & Assets Inventory: Family support, Employment history DSM 5 DX - DSM 5 DSM 5 Diagnosis: Schizoaffective disorder, bipolar type - Recommended/Plan of Treatment Treatment Recommendations and Plan of Treatment: Schizoaffective disorder, bipolar type Support and psychoeducation given CBT Continue medications as prescribed Risperdal 2 mg PO BID - Smoking Cessation Smoking Cessation Initiated: No
[2017-01-30] MEDS ORDERED: Peg-Electrolyte Oral Soln 4L (Golytely) PO ONE (15:00)
[2017-01-31 08:24] VITALS: BP 107/73; PULSE 75; RESP 19; TEMP 98; O2SAT 96
--- NOTE | 2017-01-31 08:26 | CP.PCM.PN ---
<TiffanieKeyanna rutledgeMay - Last Filed: 01/31/17 08:57> Subjective - Date & Time of Evaluation Date of Evaluation: 01/31/17 Time of Evaluation: 08:23 - Subjective Subjective: Patient was seen and examined at bedside. Patient reports having no abdominal pain, just discomfort that is improving. Patient had bowel movement s/p GoLytly. Patient denies chest pain, abdominal pain, nausea, vomiting, and fevers. Objective - Vital Signs/Intake and Output Vital Signs (last 24 hours): Temp Pulse Resp BP Pulse Ox 98.3 F 70 20 113/76 99 01/31/17 00:00 01/31/17 00:00 01/31/17 00:00 01/31/17 00:00 01/31/17 00:00 Intake and Output: 01/31/17 01/31/17 06:59 18:59 Intake Total 3500 Balance 3500 - Medications Medications: Current Medications Clonazepam (Klonopin) 1 mg PO BID [facility] Last Admin: 01/30/17 17:31 Dose: 1 mg Heparin Sodium (Porcine) (Heparin) 5,000 units SC Q12 [facility] Last Admin: 01/30/17 21:45 Dose: 5,000 units Morphine Sulfate (Morphine) 1 mg IV Q4 PRN PRN Reason: Pain, moderate (4-7) Pantoprazole Sodium (Protonix Ec Tab) 40 mg PO DAILY [facility] Last Admin: 01/30/17 09:00 Dose: 40 mg Polyethylene Glycol (Miralax) 17 gm PO DAILY [facility] Last Admin: 01/30/17 09:00 Dose: 17 gm Risperidone (Risperdal Tab) 2 mg PO BID [facility] Last Admin: 01/30/17 17:31 Dose: 2 mg - Head Exam Head Exam: ATRAUMATIC, NORMAL INSPECTION - Eye Exam Eye Exam: EOMI, Normal appearance - ENT Exam ENT Exam: Mucous Membranes Moist - Respiratory Exam Respiratory Exam: Clear to Ausculation Bilateral, NORMAL BREATHING PATTERN. absent: Rales, Rhonchi, Wheezes, Respiratory Distress - Cardiovascular Exam Cardiovascular Exam: REGULAR RHYTHM, +S1, +S2 - GI/Abdominal Exam GI & Abdominal Exam: Soft, Normal Bowel Sounds. absent: Tenderness - Neurological Exam Neurological Exam: Alert, Awake - Psychiatric Exam Psychiatric exam: Normal Affect, Normal Mood - Skin Skin Exam: Dry, Intact, Normal Color, Warm Assessment and Plan - Assessment and Plan (Free Text) Assessment: 46 year old male consulted for ileocolic intussusception and fecal impaction, s/ p fleet, tap water enema and GoLytly. - No surgical intervention at this time. - Patient needs outpatient colonoscopy. - Continue diet as tolerated. - Continue to monitor bowel function. - Continue medical management as per hospitalist team. <Clint Robles - Last Filed: 02/02/17 20:32> Objective - Vital Signs/Intake and Output Vital Signs (last 24 hours): Temp Pulse Resp BP Pulse Ox 98 F 75 19 107/73 96 01/31/17 08:23 01/31/17 08:23 01/31/17 08:23 01/31/17 08:23 01/31/17 08:23 Attending/Attestation - Attestation I have personally seen and examined this patient.: Yes I have fully participated in the care of the patient.: Yes I have reviewed all pertinent clinical information, including history, physical exam and plan: Yes Notes (Text): 02/02/17 20:31 Pt was seen and examined at bedside Agree with above note and assessment Pt had BM after enema Golytly No need for any surgical intervention at present f.u as out pt. Pt will need surgical intervention for intussusception after Colonoscopy Plan d.w pt in detail Risk and benefit explained in detail.
--- NOTE | 2017-01-31 08:54 | CP.PCM.PN ---
<Susi Cagle - Last Filed: 01/31/17 11:16> Subjective - Date & Time of Evaluation Date of Evaluation: 01/31/17 Time of Evaluation: 07:00 - Subjective Subjective: GI Fellow PGY4 Progress Note Pt seen and evaluated at bedside, pt reports improvement in abdominal and rectal pain. Pt took Golytley yesterday 4L with liquid stool, per pt small to moderate amount, does not feel like full stool was defecated. Per nursing, saw a large amount of brown liquid stool, pt went about 12 times to have BM. Pt denies fevers, chills, melena, hematocheiza, nausea or vomiting. ROS: A 12pt ROS was obtained and was negative except as above. Objective - Vital Signs/Intake and Output Vital Signs (last 24 hours): Temp Pulse Resp BP Pulse Ox 98 F 75 19 107/73 96 01/31/17 08:23 01/31/17 08:23 01/31/17 08:23 01/31/17 08:23 01/31/17 08:23 Intake and Output: 01/31/17 01/31/17 06:59 18:59 Intake Total 3500 Balance 3500 - Medications Medications: Current Medications Clonazepam (Klonopin) 1 mg PO BID [facility] Last Admin: 01/30/17 17:31 Dose: 1 mg Heparin Sodium (Porcine) (Heparin) 5,000 units SC Q12 [facility] Last Admin: 01/30/17 21:45 Dose: 5,000 units Morphine Sulfate (Morphine) 1 mg IV Q4 PRN PRN Reason: Pain, moderate (4-7) Pantoprazole Sodium (Protonix Ec Tab) 40 mg PO DAILY [facility] Last Admin: 01/30/17 09:00 Dose: 40 mg Polyethylene Glycol (Miralax) 17 gm PO DAILY [facility] Last Admin: 01/30/17 09:00 Dose: 17 gm Risperidone (Risperdal Tab) 2 mg PO BID [facility] Last Admin: 01/30/17 17:31 Dose: 2 mg - Constitutional Appears: Well, Non-toxic, No Acute Distress - Head Exam Head Exam: ATRAUMATIC, NORMAL INSPECTION, NORMOCEPHALIC - Eye Exam Eye Exam: EOMI, Normal appearance, PERRL Pupil Exam: PERRL - ENT Exam ENT Exam: Mucous Membranes Moist - Neck Exam Neck Exam: Full ROM, Normal Inspection - Respiratory Exam Respiratory Exam: Clear to Ausculation Bilateral - Cardiovascular Exam Cardiovascular Exam: RRR, +S1, +S2 - GI/Abdominal Exam GI & Abdominal Exam: Soft, Tenderness, Normal Bowel Sounds. absent: Distended, Firm, Guarding, Rigid, Organomegaly - Extremities Exam Extremities Exam: Full ROM, Normal Inspection - Back Exam Back Exam: NORMAL INSPECTION - Neurological Exam Neurological Exam: Alert, Awake, Oriented x3 - Psychiatric Exam Psychiatric exam: Normal Affect, Normal Mood - Skin Skin Exam: Dry, Intact, Normal Color, Warm Assessment and Plan - Assessment and Plan (Free Text) Assessment: This is a 46yM with a pmhx of schizoaffective disorder, syphilis, chlamydia, small bowel intussusception who is pw co abdominal/rectal pain and constipation with no bowel movement in past 12 days. 1. Abdominal and rectal pain 2. Severe Constipation 3. Ileocolic intussusception 4. Schizoaffective disorder Plan: - Continue diet as tolerated - Continue aggressive bowel regimen with Miralax daily, pt would like prescription to help with cost, per primary team - No plan for endoscopic evaluation at this time, pt will need a repeat colonoscopy as an outpt to rule out mass, infection or inflammatory disease which maybe causing recurrent symptoms - Please call with any questions or concerns, thank you. <Uriel Brice - Last Filed: 01/31/17 12:27> Objective - Vital Signs/Intake and Output Vital Signs (last 24 hours): Temp Pulse Resp BP Pulse Ox 98 F 75 19 107/73 96 01/31/17 08:23 01/31/17 08:23 01/31/17 08:23 01/31/17 08:23 01/31/17 08:23 Intake and Output: 01/31/17 01/31/17 06:59 18:59 Intake Total 3500 Balance 3500 - Medications Medications: Current Medications Clonazepam (Klonopin) 1 mg PO BID [facility] Last Admin: 01/31/17 10:01 Dose: 1 mg Heparin Sodium (Porcine) (Heparin) 5,000 units SC Q12 [facility] Last Admin: 01/31/17 10:01 Dose: 5,000 units Morphine Sulfate (Morphine) 1 mg IV Q4 PRN PRN Reason: Pain, moderate (4-7) Pantoprazole Sodium (Protonix Ec Tab) 40 mg PO DAILY [facility] Last Admin: 01/31/17 10:01 Dose: 40 mg Polyethylene Glycol (Miralax) 17 gm PO DAILY [facility] Last Admin: 01/31/17 10:01 Dose: 17 gm Risperidone (Risperdal Tab) 2 mg PO BID [facility] Last Admin: 01/31/17 10:01 Dose: 2 mg Attending/Attestation - Attestation I have personally seen and examined this patient.: Yes I have fully participated in the care of the patient.: Yes I have reviewed all pertinent clinical information, including history, physical exam and plan: Yes Notes (Text): 01/31/17 12:25 46 year old male with h/o schizoaffective d/o, h/o intususception a/w severe constipation. 1. Constipation 2. Fecal impaction 3. Intussusception Plan: - s/p disimpaction, golytely -doing better -continuemiralax bowel regimen outpatient -diet as tolerated -will sign off -outpatient colonoscopy
--- NOTE | 2017-01-31 09:46 | CP.PCM.DIS ---
Provider - Provider Date of Admission: 01/29/17 03:20 Attending physician: Jose Bashir MD Primary care physician: Vick Consults: Surgery: Samuel Psych: Andrea Time Spent in preparation of Discharge (in minutes): 45 Hospital Course - Lab Results Lab Results: Most Recent Lab Values WBC 10.9 K/uL (4.8-10.8) H 01/28/17 23:22 RBC 4.55 Mil/uL (4.40-5.90) 01/28/17 23:22 Hgb 13.1 g/dL (12.0-18.0) 01/28/17 23:22 Hct 38.3 % (35.0-51.0) 01/28/17 23:22 MCV 84.2 fL (80.0-94.0) 01/28/17 23:22 MCH 28.9 pg (27.0-31.0) 01/28/17 23:22 MCHC 34.3 g/dL (33.0-37.0) 01/28/17 23:22 RDW 13.8 % (11.5-14.5) 01/28/17 23:22 Plt Count 277 K/uL (130-400) 01/28/17 23:22 MPV 6.8 fL (7.2-11.7) L 01/28/17 23:22 Neut % (Auto) 66.1 % (50.0-75.0) 01/28/17 23:22 Lymph % (Auto) 21.9 % (20.0-40.0) 01/28/17 23:22 [place] % (Auto) 7.3 % (0.0-10.0) 01/28/17 23:22 Eos % (Auto) 3.9 % (0.0-4.0) 01/28/17 23:22 Baso % (Auto) 0.8 % (0.0-2.0) 01/28/17 23:22 Neut # 7.2 K/uL (1.8-7.0) H 01/28/17 23:22 Lymph # 2.4 K/uL (1.0-4.3) 01/28/17 23:22 [place] # 0.8 K/uL (0.0-0.8) 01/28/17 23:22 Eos # 0.4 K/uL (0.0-0.7) 01/28/17 23:22 Baso # 0.1 K/uL (0.0-0.2) 01/28/17 23:22 Sodium 135 mmol/L (132-148) 01/28/17 23:22 Potassium 4.3 mmol/L (3.6-5.2) 01/28/17 23:22 Chloride 101 mmol/L (98-107) 01/28/17 23:22 Carbon Dioxide 25 mmol/L (22-30) 01/28/17 23:22 Anion Gap 14 (10-20) 01/28/17 23:22 BUN 12 mg/dL (9-20) 01/28/17 23:22 Creatinine 0.8 MG/DL (0.8-1.5) 01/28/17 23:22 Est GFR ( Amer) > 60 01/28/17 23:22 Est GFR (Non-Af Amer) > 60 01/28/17 23:22 Random Glucose 89 mg/dL (75-110) 01/28/17 23:22 Calcium 9.4 mg/dl (8.6-10.4) 01/28/17 23:22 Total Bilirubin 0.6 mg/dL (0.2-1.3) 01/28/17 23:22 AST 30 U/L (17-59) 01/28/17 23:22 ALT 39 U/L (21-72) 01/28/17 23:22 Alkaline Phosphatase 54 U/L (38-126) 01/28/17 23:22 Total Protein 7.1 g/dL (6.3-8.3) 01/28/17 23:22 Albumin 4.1 g/dL (3.5-5.0) 01/28/17 23:22 Globulin 3.0 gm/dL (2.2-3.9) 01/28/17 23:22 Albumin/Globulin Ratio 1.4 (1.0-2.1) 01/28/17 23:22 Lipase 18 U/L (23-300) L 01/28/17 23:22 Urine Color Yellow (YELLOW) 01/28/17 23:55 Urine Clarity Clear (Clear) 01/28/17 23:55 Urine pH 7.0 (5.0-8.0) 01/28/17 23:55 Ur Specific [place] 1.010 (1.003-1.030) 01/28/17 23:55 Urine Protein Negative mg/dL (NEGATIVE) 01/28/17 23:55 Urine Glucose (UA) Normal mg/dL (Normal) 01/28/17 23:55 Urine Ketones Negative mg/dL (NEGATIVE) 01/28/17 23:55 Urine Blood Negative (NEGATIVE) 01/28/17 23:55 Urine Nitrate Negative (NEGATIVE) 01/28/17 23:55 Urine Bilirubin Negative (NEGATIVE) 01/28/17 23:55 Urine Urobilinogen Normal mg/dL (0.2-1.0) 01/28/17 23:55 Ur Leukocyte Esterase Neg Leonard/uL (Negative) 01/28/17 23:55 Urine WBC (Auto) < 1 /hpf (0-5) 01/28/17 23:55 Urine RBC (Auto) 1 /hpf (0-3) 01/28/17 23:55 Stool Occult Blood Negative (NEGATIVE) 01/29/17 03:54 - Hospital Course Hospital Course: On admission: Patient is a 46 year old male with a PMHx of Intussusception in 2001 (surgical correction at [facility]), 2006, 2013, and earlier this year, syphillis (was treated in 2009 but did not follow-up to continue tx), schizoaffective disorder, asthma, and anxiety. He complains of lower abdominal pain that radiates down to the rectum. Abdominal pain is noted to be weak and dull/aching , but rectal pain is noted to be sharp and 9/10. Pain began 12 days ago, worsens with positional changes, and feels better when patient is still. Pain is reportedly similar to all of his prior episodes of intussusception but he notes that he first experienced this rectal pain during his last episode. Rectal pain was discovered to be due to an infection that traveled from his colon to his rectum. Additionally, patient reports constipation (12 days), diaphoresis, weakness, dizziness, lightheadedness, nausea, difficulty urinating , 1 year hx of easy bruising, weight loss (20 lbs), and decreased appetite that began 4 months ago. Patient denies any fever, chills, headache, vision changes, sore throat, dysphagia, CP, palpitations, SOB, cough, vomiting, edema, calf pain , recent travel, or sick contacts. Patient presented to the ED with abdominal pain. Ct scan of the abdomen/pelvis was performed and noted ileocolic intussusception and findings suggestive of constipation. Dr. Dewey was consulted for the abdominalpain/inussusception. A manual disimpaction was attempted with no successful stool remover. Tap water/ fleet enemas were administered and lead to successful evacuation of patients bowels. Surgery was consulted and no surgical intervention was needed. Psychiatry was consulted due to the patients history of schizoaffective disorder. CBT was performed and his medication should be continued as prescribed. Patient is well appearing and reporting successful evacuation of his stool. Patient is cleared medically for discharge. - Date & Time of H&P Date of H&P: 01/29/17 Time of H&P: 10:03 Discharge Exam - Head Exam Head Exam: ATRAUMATIC, NORMAL INSPECTION, NORMOCEPHALIC - Eye Exam Eye Exam: EOMI Pupil Exam: NORMAL ACCOMODATION - ENT Exam ENT Exam: Mucous Membranes Moist - Respiratory Exam Respiratory Exam: NORMAL BREATHING PATTERN - Cardiovascular Exam Cardiovascular Exam: REGULAR RHYTHM - GI/Abdominal Exam GI & Abdominal Exam: Normal Bowel Sounds, Soft. absent: Distended, Tenderness - Neurological Exam Neurological exam: Alert, Oriented x3 - Psychiatric Exam Psychiatric exam: Normal Affect, Normal Mood - Skin Skin Exam: Dry, Intact, Normal Color, Warm Discharge Plan - Discharge Medications Prescriptions: Docusate [Colace] 100 mg PO BID #6 cap Polyethylene Glycol 3350 [Miralax] 17 gm PO DAILY #7 packet Risperidone [Risperdal] 2 mg PO BID #60 - Follow Up Plan Condition: STABLE Disposition: HOME/ ROUTINE Instructions: Laxative, Stool Softeners (By mouth), Risperidone (By mouth), Polyethylene Glycol 3350 (By mouth), Constipation (DC), Schizoaffective Disorder (DC), Acute Abdominal Pain (DC), Rectal Prolapse (DC) Additional Instructions: From a surgical standpoint, pt is stable and clear for discharge home. He should follow with in Dr. Baker's office in 1-2 weeks for evaluation of your intussiception. Please call the office to0 make an appointment. I have attached office information. From a GI standpoint, patient is stable and clear for discharge home. Please follow up in Dr. Rawls's office in 1-2 weeks for an outpatient colonoscopy. Please call the office to make an appointment. I have attached the office information. From a Psychiatry standpoint, Patient is stable and clear for discharge. Please continue home medications. From a medical standpoint, you are stable and clear for discharge. Please make and appointment with your Primary care provider within one week, Please call to make an appointment. Please take the following medications as follows for Constipation. - Colace 100mg by mouth, 1x in the morning and 1x at night for constipation - If No Bowel Movement in 3 days, then take Miralax 17 g packet in 8oz of water 1x/day until a bowel movement. - If no bowel movement in 7 days then please come to back to ER Thank you and take care. Referrals: Clint Robles MD [Staff Provider] - Jaylen Rawls MD [Staff Provider] -
[2017-01-31] MEDS: POLYETHYLENE GLYCOL 3350 17 GM/Dose PACKET PO SCH (10:01)
[2017-01-31] MEDS: Pantoprazole 40 mg EC Tab PO SCH (10:01)
[2017-02-01 23:58] LABS: S.CEREVISIAE (ASCA) (IGG) 4.7 U (<=20.0)
[2017-02-02 14:43] LABS: S.CEREVISIAE (ASCA) (IGA) 6.9 U (<=20.0)
== END 2017-01-31 13:25 | disposition home or self-care (01) | DRG 390 ==
LOC: C.ER 19:54 → C.3T 01-29 03:20
PROVIDERS: ADMIT Internal Medicine; ATTEND Internal Medicine
DX: K56.1 Intussusception (principal); F25.0 Schizoaffective disorder, bipolar type; F41.9 Anxiety disorder, unspecified; J45.909 Unspecified asthma, uncomplicated; K56.41 Fecal impaction

== ENCOUNTER 2017-05-22 07:16 | Day surgery (SDC) | payer MEDICARE ==
[2017-05-22 07:33] VITALS: BMI 28.1
[2017-05-22] MEDS ORDERED: Lactated Ringer's 500 ML IV SCH (09:00)
[2017-05-22] MEDS ORDERED: Propofol 10 mg/ml Inj (20 ML) ONE (09:08)
[2017-05-22] MEDS ORDERED: Lidocaine Hydrochloride 5 ML INJ ONE (09:08)
[2017-05-22 09:46] VITALS: TEMP 98
[2017-05-22 09:55] VITALS: O2SAT 100
[2017-05-22 10:23] VITALS: RESP 18
[2017-05-22 10:26] VITALS: BP 127/90; PULSE 86
== END 2017-05-22 10:40 | disposition home or self-care (01) ==
LOC: MERGE 07:16 → C.ENDO 07:16
PROVIDERS: ATTEND Internal Medicine Gastroenterology
DX: K64.8 Other hemorrhoids (principal); K56.1 Intussusception
CPT/HCPCS: 45378; J2704; J3010; J7120

== ENCOUNTER 2017-06-25 07:56 | Day surgery (SDC) | payer MEDICARE ==
[2017-06-25 08:40] VITALS: BMI 27.3
[2017-06-25] MEDS ORDERED: Midazolam 2 MG/2 ML VIAL ONE (10:25)
[2017-06-25] MEDS ORDERED: Propofol 10 mg/ml Inj (20 ML) ONE (10:25)
--- NOTE | 2017-06-25 10:26 | CP.SDSHP ---
Same Day Surgery H & P - History Proposed Procedure: EGD Pre-Op Diagnosis: GERD - Allergies Allergies: Allergies No Known Allergies Allergy (Verified 06/25/17 08:39) - Physical Exam General Appearance: NAD Vital Signs: Vital Signs 06/25/17 08:46 Temperature 98 F Pulse Rate 69 Respiratory 19 Rate Blood Pressure 119/66 O2 Sat by Pulse 99 Oximetry Mental Status: Alert & Oriented x3 Neuro: WNL Heart: WNL Lungs: WNL GI: WNL - {Optional Preform as Required} Abdomen: WNL - Impression Pt. Evaluated Today:Candidate for Anesthesia & Procedure: Yes - Date & Time Date: 06/25/17 Time: 10:25 Short Stay Discharge - Short Stay Discharge Admitting Diagnosis/Reason for Visit: INTUSSUSCEPTION Disposition: HOME/ ROUTINE
[2017-06-25] MEDS ORDERED: Lidocaine Hydrochloride 5 ML INJ ONE (10:28)
[2017-06-25] MEDS ORDERED: Lactated Ringer's 500 ML IV SCH (10:45)
[2017-06-25 11:06] VITALS: O2SAT 100
[2017-06-25 15:06] VITALS: BP 123/71; PULSE 79; RESP 14; TEMP 97
== END 2017-06-25 14:25 | disposition home or self-care (01) ==
LOC: C.ENDO 07:56
PROVIDERS: ATTEND Internal Medicine Gastroenterology
DX: K21.0 Gastro-esophageal reflux disease with esophagitis (principal); K29.50 Unspecified chronic gastritis without bleeding; K29.80 Duodenitis without bleeding; I34.1 Nonrheumatic mitral (valve) prolapse
CPT/HCPCS: 43239; 88305; 88312; 88313; 88342; J2250; J2704; J7120